=== PATIENT | male | born 1950 | race Caucasian/White ===

== ENCOUNTER 2023-04-02 07:30 | Outpatient (CLI) | payer OTHER, SELFPAY ==
--- NOTE | 2023-04-02 07:39 | USCV_ITS ---
Donna Lewis Age: 73 Gender: M : 1950 Exam Date: 04/02/2023 07:48 Ordering Phys: Xander Sears DO Technologist: [place] [facility] [place] AAA SCREENING HISTORY: Diameter (cm) AP x Transverse x Length Velocity (cm/s) Waveform Prox Aorta: 2.45 x 2.23 x 77.70 Mid Aorta: 1.98 x 2.15 x 73.50 Distal Aorta: 3.12 x 3.62 x 38.30 Right Iliac Prox: 1.50 x 1.35 x 60.30 Left Iliac Prox: 1.16 x 1.19 x 67.80 Stent Prox Landing x x Aneurysmal Sac Max x x Lt Lat Sac Dim Rt Lat Sac Dim Stent Dist Landing x x Right Iliac Stent x x Left Iliac Stent x x Right Renal Art Left Renal Art FINDINGS: CONCLUSIONS Distal AAA measuring 3.1 x 3.6cm. Moderate atheromatous disease within the abdominal aorta. Ectatic Right Iliac artery 1.5 cm Pito Hameed MD (Electronically Signed) Final Date: 02 Apr 2023 09:52 S
== END 2023-04-02 07:31 | disposition home or self-care (01) ==
LOC: RAD 07:33
PROVIDERS: PCP Emergency Medicine Emergency Medical Services; Visit Provider Emergency Medicine Emergency Medical Services
DX: I71.40 Abdominal aortic aneurysm, without rupture, unspecified (principal)
CPT/HCPCS: 76706

== ENCOUNTER → 2023-04-23 10:18 | Outpatient (BNVA) | payer OTHER, SELFPAY | PROVIDERS: PCP Emergency Medicine Emergency Medical Services; Visit Provider Nurse Practitioner Family | DX: Z85.828 Personal history of other malignant neoplasm of skin (principal); Z85.820 Personal history of malignant melanoma of skin; Z87.891 Personal history of nicotine dependence; D04.4 Carcinoma in situ of skin of scalp and neck; D04.5 Carcinoma in situ of skin of trunk; L57.0 Actinic keratosis; S50.812A Abrasion of left forearm, initial encounter; X58.XXXA Exposure to other specified factors, initial encounter; D69.2 Other nonthrombocytopenic purpura | CPT/HCPCS: 11102; 11103; 17004; 17272; 99214 ==

== ENCOUNTER → 2023-05-16 08:55 | Outpatient (BNVA) | payer OTHER, SELFPAY | PROVIDERS: PCP Emergency Medicine Emergency Medical Services; Visit Provider Dermatology | DX: C44.529 Squamous cell carcinoma of skin of other part of trunk (principal); D04.5 Carcinoma in situ of skin of trunk | CPT/HCPCS: 11603; 12032; 17260 ==

== ENCOUNTER → 2023-05-27 09:52 | Outpatient (BNVA) | payer OTHER, SELFPAY | PROVIDERS: PCP Emergency Medicine Emergency Medical Services; Visit Provider Dermatology | DX: L57.0 Actinic keratosis (principal); L82.0 Inflamed seborrheic keratosis; L82.1 Other seborrheic keratosis; L81.4 Other melanin hyperpigmentation; Z48.02 Encounter for removal of sutures; Z85.828 Personal history of other malignant neoplasm of skin; Z87.891 Personal history of nicotine dependence | CPT/HCPCS: 17000; 17003; 17110; 99213 ==

== ENCOUNTER 2023-08-06 16:48 | Emergency (ER) | payer OTHER, SELFPAY ==
[2023-08-06 16:51] VITALS: BP 121/77; PULSE 76; RESP 18; O2SAT 98; BMI 22.1
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
--- NOTE | 2023-08-06 16:55 | ECG_ITS ---
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 Measurements Intervals [place] Rate: 79 P: 71 WA: 172 QRS: 72 QRSD: 90 T: 81 QT: 431 QTc: 495 Interpretive Statements SINUS RHYTHM PROLONGED QT INTERVAL No previous ECG available for comparison Electronically Signed On 08-06-2023 17:56:39 CDT by Cyrus Alfonso M.D. [id number]
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
[2023-08-06] MEDS: iohexol 350 mg/mL 500 mL Btl (per mL) IV (17:19)
[2023-08-06] MEDS: HYDROcodone-acetaminophen 5-325 mg Tablet 1 TAB PO (17:30)
[2023-08-06] MEDS: tetanus-dipt-pertussis 0.5 mL SDV IM (17:39)
[2023-08-06 18:12] LABS: Basophils % 0.1 %; Eosinophils % 0.1 %; Hematocrit 36.7 % (37-53); Lymphocytes # 0.3 10^3/uL (0.8-4.8); Lymphocytes % 2.5 %; Mean Corpuscular HGB Conc 35.1 g/dL (30-55); Mean Corpuscular Hemoglobin 35.6 pg (27-33); Mean Corpuscular Volume 101.4 fl (82-101); Mean Platelet Volume 10.4 fL (7.4-10.4); Monocytes # 0.6 10^3/uL (0.2-0.9); Monocytes % 4.8 %; Neutrophils # 11.98 10^3/uL (1.8-7.7); Nucleated Red Blood Cells % 0 %; Platelet Count 187 10^3/cmm (157-399); Red Blood Count 3.62 10^6/uL (3.85-5.65); Red Cell Distribution Width 12.5 % (12.1-15.1); White Blood Count 13.01 10^3/uL (3.29-11.43)
[2023-08-06 18:27] LABS: Alanine Aminotransferase 16 U/L (0-41); Albumin Level 4.4 g/dL (3.5-5.2); Alkaline Phosphatase 51 U/L (40-130); Anion Gap 14.7 (5-19); Aspartate Amino Transferase 25 U/L (0-40); Blood Urea Nitrogen 19 mg/dL (8-23); Calcium 8.4 mg/dL (8.5-10.5); Carbon Dioxide 24 mmol/L (22-29); Chloride 103 mmol/L (98-107); Globulin 1.9 g/dL (1.3-4.6); Glucose 129 mg/dL (65-115); Osmolality Calculated 288 mOsm/kg (285-295); Potassium 4.7 mmol/L (3.5-5.1); Sodium 137 mmol/L (136-145); Total Bilirubin 0.7 mg/dL (0.15-1.2); Total Protein 6.3 g/dL (6.6-8.7)
[2023-08-06] MEDS: neomycin-poly-bacitracin oint 28 gm 1 APPLIC TOPICAL ×2 (19:36)
[2023-08-06] MEDS: acetaminophen 500 mg Tablet 1000 MG PO (19:36)
--- NOTE | 2023-08-06 19:53 | PC.NURSE ---
Applied antibiotic ointment to all the open skin tears and wounds the patient had on both upper extremities and the patients head and ear.
--- NOTE | 2023-08-07 09:00 | DCPLANNER ---
optical laboratory manager had message to schedule a follow up appointment for patient with ortho. optical laboratory manager sent patients information to the front office staff at ortho. Patients information will be printed and reviewed. Clinic will call patient with appointment information.
== END 2023-08-06 19:52 | disposition home or self-care (01) ==
PROVIDERS: Emergency Provider Family Medicine; PCP Emergency Medicine Emergency Medical Services
DX: S42.032A Displaced fracture of lateral end of left clavicle, initial encounter for closed fracture (principal); S22.42XA Multiple fractures of ribs, left side, initial encounter for closed fracture; S01.81XA Laceration without foreign body of other part of head, initial encounter; Z79.82 Long term (current) use of aspirin; I10 Essential (primary) hypertension; E78.5 Hyperlipidemia, unspecified; Z87.891 Personal history of nicotine dependence; Z94.1 Heart transplant status; V59.9XXA Occupant (driver) (passenger) of pick-up truck or van injured in unspecified traffic accident, initial encounter; Z23 Encounter for immunization
CPT/HCPCS: 12013; 36415; 70450; 71260; 72125; 73030; 74177; 80053; 85025; 90471; 90715; 93005; 99285; Q9967

== ENCOUNTER → 2023-08-12 15:07 | Outpatient (BNVA) | payer OTHER, SELFPAY | PROVIDERS: PCP Emergency Medicine Emergency Medical Services; Referring Provider Emergency Medicine; Visit Provider Specialist | DX: V89.2XXA Person injured in unspecified motor-vehicle accident, traffic, initial encounter (principal); S42.032A Displaced fracture of lateral end of left clavicle, initial encounter for closed fracture | CPT/HCPCS: 73030 ==

== ENCOUNTER 2023-08-12 16:21 | Outpatient (CLI) | payer OTHER, SELFPAY | END 2023-08-12 16:22 | disposition home or self-care (01) | LOC: SPT 08-13 11:21 | PROVIDERS: PCP Emergency Medicine Emergency Medical Services; Visit Provider Specialist | DX: Z46.89 Encounter for fitting and adjustment of other specified devices (principal); S42.025D Nondisplaced fracture of shaft of left clavicle, subsequent encounter for fracture with routine healing; X58.XXXD Exposure to other specified factors, subsequent encounter | CPT/HCPCS: 23500; 97760; 99204; L3670 ==

== ENCOUNTER → 2023-08-22 11:10 | Outpatient (BNVA) | payer OTHER, SELFPAY | PROVIDERS: PCP Emergency Medicine Emergency Medical Services; Visit Provider Nurse Practitioner Family | DX: D48.5 Neoplasm of uncertain behavior of skin (principal); L57.0 Actinic keratosis; S50.812A Abrasion of left forearm, initial encounter; D69.2 Other nonthrombocytopenic purpura; Z85.828 Personal history of other malignant neoplasm of skin; Z85.820 Personal history of malignant melanoma of skin | CPT/HCPCS: 11102; 17000; 99213 ==

== ENCOUNTER → 2023-09-02 11:08 | Outpatient (BNVA) | payer OTHER, SELFPAY | PROVIDERS: PCP Emergency Medicine Emergency Medical Services; Visit Provider Specialist | DX: S42.032D Displaced fracture of lateral end of left clavicle, subsequent encounter for fracture with routine healing; V89.2XXD Person injured in unspecified motor-vehicle accident, traffic, subsequent encounter | CPT/HCPCS: 73030; 99024 ==

== ENCOUNTER → 2023-09-19 08:06 | Outpatient (BNVA) | payer OTHER, SELFPAY | PROVIDERS: PCP Emergency Medicine Emergency Medical Services; Visit Provider Dermatology | DX: D48.5 Neoplasm of uncertain behavior of skin (principal); C44.42 Squamous cell carcinoma of skin of scalp and neck; L82.1 Other seborrheic keratosis; Z85.828 Personal history of other malignant neoplasm of skin; L81.4 Other melanin hyperpigmentation; L57.0 Actinic keratosis | CPT/HCPCS: 11102; 17000; 17272; 99213 ==

== ENCOUNTER → 2023-10-07 08:57 | Outpatient (BNVA) | payer OTHER, SELFPAY | PROVIDERS: PCP Emergency Medicine Emergency Medical Services; Visit Provider Specialist | DX: S42.032D Displaced fracture of lateral end of left clavicle, subsequent encounter for fracture with routine healing; V89.2XXD Person injured in unspecified motor-vehicle accident, traffic, subsequent encounter | CPT/HCPCS: 73030; 99024 ==

== ENCOUNTER → 2023-11-22 10:29 | Outpatient (BNVA) | payer OTHER, SELFPAY | PROVIDERS: PCP Emergency Medicine Emergency Medical Services; Visit Provider Nurse Practitioner Family | DX: D48.5 Neoplasm of uncertain behavior of skin (principal); Z85.828 Personal history of other malignant neoplasm of skin; Z85.820 Personal history of malignant melanoma of skin; L57.8 Other skin changes due to chronic exposure to nonionizing radiation; D22.4 Melanocytic nevi of scalp and neck | CPT/HCPCS: 11102; 17000; 17110; 99213 ==

== ENCOUNTER 2023-12-04 08:05 | Outpatient (CLI) | payer OTHER, SELFPAY ==
--- NOTE | 2023-12-04 08:16 | USCV_ITS ---
Donna Lewis Age: 73 Gender: M : 1950 Exam Date: 12/04/2023 08:26 Ordering Phys: Xander Sears DO Technologist: CT [place] [facility] [place]: aaa HISTORY: Diameter (cm) AP x Transverse x Length Velocity (cm/s) Waveform Prox Aorta: 2.35 x 2.03 x 57.40 Mid Aorta: 2.90 x 2.40 x 48.30 Distal Aorta: 4.18 x 4.61 x 57.70 Right Iliac Prox: 1.43 x 1.71 x 72.70 Left Iliac Prox: 2.13 x 2.02 x 77.70 Stent Prox Landing x x Aneurysmal Sac Max x x Lt Lat Sac Dim Rt Lat Sac Dim Stent Dist Landing x x Right Iliac Stent x x Left Iliac Stent x x Right Renal Art Left Renal Art FINDINGS: CONCLUSIONS Distal AAA measuring 4.1 x 4.6cm AP x transverse progressed since 04/02/23. Recommend CTA in further evaluation. Moderate atheromatous plaque Aneurysmal LEFT iliac artery Normal RIGHT iliac artery Pito Hameed MD (Electronically Signed) Final Date: 04 December 2023 09:19 S
== END 2023-12-04 08:06 | disposition home or self-care (01) ==
LOC: RAD 08:06
PROVIDERS: PCP Emergency Medicine Emergency Medical Services; Visit Provider Family Medicine
DX: Z13.6 Encounter for screening for cardiovascular disorders (principal); I71.40 Abdominal aortic aneurysm, without rupture, unspecified
CPT/HCPCS: 93978

== ENCOUNTER 2024-02-05 10:06 | Outpatient (CLI) | payer OTHER, SELFPAY ==
--- NOTE | 2024-02-05 10:11 | CT_ITS ---
WS: [id number] CT chest w con* [id number] HISTORY: FOLLOW UP PULMONARY NODULE TECHNIQUE: Axial imaging performed through the thorax. Coronal and sagittal reformats are submitted. All CT scans at [facility] use at least one of these dose optimization techniques: automated exposure control; mA and/or kV adjustment per patient size (includes targeted exams where dose is mat ched to clinical indication); or iterative reconstruction. CONTRAST: None DLP: 321.65 mGy.cm COMPARISON: 08/06/2023 Lungs and central airway: Moderate pulmonary hyperexpansion from emphysema. There are a few scattered benign granulomata. 5 mm nodule in the RIGHT middle lobe is stable. There are no suspicious or new o r enlarging nodules. Pleura: Normal. No pleural effusion. Heart and pericardium: Normal size heart with no pericardial effusion. Mediastinum and sanjeev: Densely calcified hilar and mediastinal lymph nodes from prior granulomatous di sease. No adenopathy. Vessels: Moderate atherosclerotic plaque thoracic aorta. No aneurysm. Normal sized pulmonary artery. Chest wall and lower neck: Tiny bilateral thyroid nodules. Prior sternotomy. Upper abdomen: Hepatic steatosis along the falciform ligament. Granulomata in the spleen. No adrenal mass. Osseous structures: No destructive process. IMPRESSION: 1. No change in the irregular 5 mm nodule in the RIGHT middle lobe 2. Nonspecific in appearance and may be scar. Consider 6 to 12-month additional chest CT follow-up. 3. Mild emphysema. 4. Prior sternotomy.
[2024-02-05 11:08] LABS: Blood Urea Nitrogen 19 mg/dL (8-23)
[2024-02-05] MEDS: iohexol 350 mg/mL 500 mL Btl (per mL) IV (11:16)
== END 2024-02-05 10:07 | disposition home or self-care (01) ==
LOC: RAD 10:06
PROVIDERS: PCP Emergency Medicine Emergency Medical Services; Visit Provider Emergency Medicine Emergency Medical Services
DX: R91.1 Solitary pulmonary nodule (principal); J43.9 Emphysema, unspecified; Z98.890 Other specified postprocedural states
CPT/HCPCS: 71260; 82565; 84520; Q9967

== ENCOUNTER → 2024-03-17 09:57 | Outpatient (BNVA) | payer OTHER, SELFPAY | PROVIDERS: PCP Emergency Medicine Emergency Medical Services; Visit Provider Nurse Practitioner Family | DX: D48.5 Neoplasm of uncertain behavior of skin (principal); L57.0 Actinic keratosis; L57.8 Other skin changes due to chronic exposure to nonionizing radiation; D22.4 Melanocytic nevi of scalp and neck; L81.4 Other melanin hyperpigmentation; L98.8 Other specified disorders of the skin and subcutaneous tissue; Z85.828 Personal history of other malignant neoplasm of skin; Z85.820 Personal history of malignant melanoma of skin; L82.0 Inflamed seborrheic keratosis | CPT/HCPCS: 11102; 17000; 17110; 99213 ==

== ENCOUNTER → 2024-05-13 08:30 | Outpatient (BNVA) | payer OTHER, SELFPAY | PROVIDERS: PCP Emergency Medicine Emergency Medical Services; Visit Provider Dermatology | DX: C44.622 Squamous cell carcinoma of skin of right upper limb, including shoulder (principal); D04.62 Carcinoma in situ of skin of left upper limb, including shoulder | CPT/HCPCS: 11602; 12032; 17262 ==

== ENCOUNTER → 2024-07-22 10:45 | Outpatient (BNVA) | payer OTHER, SELFPAY | PROVIDERS: PCP Emergency Medicine Emergency Medical Services; Visit Provider Nurse Practitioner Family | DX: L57.8 Other skin changes due to chronic exposure to nonionizing radiation (principal); D22.4 Melanocytic nevi of scalp and neck; L81.4 Other melanin hyperpigmentation; L98.8 Other specified disorders of the skin and subcutaneous tissue; L57.0 Actinic keratosis; D48.5 Neoplasm of uncertain behavior of skin; Z85.828 Personal history of other malignant neoplasm of skin; Z85.820 Personal history of malignant melanoma of skin | CPT/HCPCS: 11102; 17000; 99213 ==

== ENCOUNTER 2024-08-03 08:56 | Outpatient (CLI) | payer OTHER, SELFPAY ==
--- NOTE | 2024-08-03 09:04 | CT_ITS ---
WS: [id number] CT ABDOMEN WITH AND WITHOUT CONTRAST HISTORY: FOLLOW UP RENAL MASS Multiphase imaging through the abdomen. Oral contrast has not been provided. Coronal and sagittal ref ormats are submitted. All CT scans at [facility] use at least one of these dose optimization techniques: automated exposure control; mA and/or kV adjustment per patient size (includes targeted e xams where dose is matched to clinical indication); or iterative reconstruction. IV CONTRAST: Omnipaque 350; 100 mL IV. Oral contrast: No DLP: 1220.22 mGy.cm COMPARISON: 08/06/2023 Lower thorax: Lung bases are clear. Heart is normal size. No hiatal hernia. Liver/biliary system: Normal size liver. There are a few scattered too small to characterize low-atte nuation foci. Normal portal vein. Gallbladder: Normal. No gallstones or wall thickening. No pericholecystic fluid. Pancreas: Diffuse pancreatic atrophy. Very slight prominence of the pancreatic duct is similar to camille or studies. No mass identified. Spleen: Normal size with granuloma. Adrenal glands: Mild bilateral adrenal gland thickening. Hounsfield units are low within the thickene d LEFT adrenal gland consistent with an adenoma. This study was not ordered for adrenal mass protocol . Right kidney: Mild perinephric stranding. No obstruction. Nonobstructing calcification. No solid mass . Left kidney: Normal size kidney with diffuse too small to characterize cortical hypodensities. Very s ubtle area of decreased enhancement in the medial mid LEFT kidney measures 11 x 14 mm and is unchange d in size since 08/06/2023. There is enhancement. Aorta: No aneurysmal dilatation of the abdominal aorta. Largest diameter is 4.9 cm. There is a combin ation of wall calcification with asymmetric intraluminal mural thickening. Aneurysm has increased in diameter from 4.1 cm. Calcification extends into the proximal iliac arteries. Lymphadenopathy: None. Free fluid: None. GI tract: As visualized no obstruction. Abdominal wall: Unremarkable abdominal wall. No hernia. Numerous collateral varices are noted in the upper abdomen. Visualized osseous structures: Unremarkable. CT/CT abdomen wo/w con [id number] IMPRESSION: 1. Enhancing LEFT renal mass measures 11 x 14 mm and stable since 08/06/2023. S mall renal cell neoplasm is suspected. Recommend continued renal mass CT protoc ol follow-up to document stability. Recommend follow-up in 6 to 12 months. 2. Mild thickening of each adrenal gland. Probably adenomas. No change since . 3. Abdominal aortic aneurysm has increased in size from 4.1 to 4.9 cm. Recomme nd evaluation by cardiovascular surgery. 4. Atrophic pancreas.
--- NOTE | 2024-08-03 09:04 | CT_ITS ---
WS: [id number] CTA THORACIC AORTA WITH AND WITHOUT CONTRAST HISTORY: Follow-up lung nodule. TECHNIQUE: CTA imaging of the thorax is performed with and without contrast. After noncontrast imagin g is performed, CT angiogram is performed during injection of Omnipaque 350; 100 mL IV.. Sagittal and coronal reconstructions, sagittal and coronal MIP imaging is submitted. All CT scans at [facility] use at least one of these dose optimization techniques: automated exposure control; mA and/or kV adjustment per patient size (includes targeted exams where dose is matched to clinical indication) ; or iterative reconstruction. DLP: 1220.22 mGy.cm COMPARISON: 02/05/2024, 08/06/2023 Arterial phase imaging is performed of the aorta. Mildly enlarged thoracic aorta with moderate athero sclerotic disease. There is very slight dilatation of the ascending aorta with a maximum diameter of 4.2 cm. Atherosclerotic plaque through the arch. Descending aorta is normal caliber. Normal sinotubul ar junction and sinus of Valsalva. Normal pulmonary artery. No filling defects. Mild LEFT heart enlar gement. Calcified hilar lymph nodes. No adenopathy. Small hiatal hernia. Moderate emphysema. Reidentified is the 5 mm nodule in the RIGHT middle lobe which is unchanged. Ther e are a few additional micronodules which are unchanged also. No enlarging mass or new mass. Subsolid 3 mm nodule LEFT lower lobe, image 46 of 14 is unchanged. Supraumbilical atherosclerotic disease abd ominal aorta. Splenic granulomata. No destructive bone lesions. Prior healed rib fractures on the LEFT. There are a few wedge-shaped def ormities in the midthoracic vertebral bodies. Prior CABG. CT/CT angio chest [id number] IMPRESSION: 1. Stable pulmonary nodules. Demonstrate long-term stability recommend 12-sree h noncontrast chest CT follow-up. 2. Mild dilatation ascending thoracic aorta to 4.2 cm. No interval change sinc e 08/06/2023 3. Chronic emphysema. 4. Mild LEFT heart enlargement.
[2024-08-03] MEDS: iohexol 350 mg/mL 500 mL Btl (per mL) IV (10:11)
[2024-08-03 10:16] LABS: Blood Urea Nitrogen 22 mg/dL (8-23)
== END 2024-08-03 08:57 | disposition home or self-care (01) ==
LOC: RAD 08:57
PROVIDERS: PCP Family Medicine; Visit Provider Emergency Medicine Emergency Medical Services
DX: J43.9 Emphysema, unspecified (principal); R91.8 Other nonspecific abnormal finding of lung field; I70.0 Atherosclerosis of aorta; D73.89 Other diseases of spleen
CPT/HCPCS: 71275; 74170; 82565; 84520

== ENCOUNTER → 2024-08-10 10:48 | Outpatient (BNVA) | payer OTHER, SELFPAY | PROVIDERS: PCP Family Medicine; Visit Provider Dermatology | DX: C44.612 Basal cell carcinoma of skin of right upper limb, including shoulder (principal); L57.0 Actinic keratosis; L82.1 Other seborrheic keratosis; Z85.828 Personal history of other malignant neoplasm of skin; L57.8 Other skin changes due to chronic exposure to nonionizing radiation | CPT/HCPCS: 17000; 17262; 99213 ==

== ENCOUNTER → 2024-12-17 14:37 | Outpatient (BNVA) | payer OTHER, SELFPAY | PROVIDERS: PCP Family Medicine; Visit Provider Nurse Practitioner Family | DX: L57.8 Other skin changes due to chronic exposure to nonionizing radiation (principal); Z85.828 Personal history of other malignant neoplasm of skin; Z08 Encounter for follow-up examination after completed treatment for malignant neoplasm; Z85.820 Personal history of malignant melanoma of skin; L57.0 Actinic keratosis | CPT/HCPCS: 11102; 17004; 20605; 99213 ==

== ENCOUNTER → 2025-02-08 08:16 | Outpatient (BNVA) | payer OTHER, SELFPAY | PROVIDERS: PCP Family Medicine; Visit Provider Dermatology | DX: C44.42 Squamous cell carcinoma of skin of scalp and neck (principal); C44.41 Basal cell carcinoma of skin of scalp and neck; D48.5 Neoplasm of uncertain behavior of skin; L57.0 Actinic keratosis | CPT/HCPCS: 11102; 13121; 17000; 17272; 17311 ==

== ENCOUNTER → 2025-03-04 08:55 | Outpatient (BNVA) | payer OTHER, SELFPAY | PROVIDERS: PCP Family Medicine; Visit Provider Dermatology | DX: C44.41 Basal cell carcinoma of skin of scalp and neck (principal); D04.5 Carcinoma in situ of skin of trunk; M70.22 Olecranon bursitis, left elbow | CPT/HCPCS: 10160; 13132; 17262; 17311 ==

== ENCOUNTER → 2025-03-24 09:21 | Outpatient (BNVA) | payer OTHER, SELFPAY | PROVIDERS: PCP Family Medicine; Visit Provider Specialist | DX: M70.22 Olecranon bursitis, left elbow (principal); M06.4 Inflammatory polyarthropathy | CPT/HCPCS: 20605; 36415; 73080; 80053; 84550; 85025; 85651; 86140; 86200; 86225; 86235; 86431; 87070; 87075; 87205; 99214 ==

== ENCOUNTER → 2025-06-04 09:42 | Outpatient (BNVA) | payer OTHER, SELFPAY | PROVIDERS: PCP Family Medicine; Visit Provider Nurse Practitioner Family | DX: Z85.828 Personal history of other malignant neoplasm of skin (principal); Z08 Encounter for follow-up examination after completed treatment for malignant neoplasm; Z85.820 Personal history of malignant melanoma of skin; L57.0 Actinic keratosis; D48.5 Neoplasm of uncertain behavior of skin | CPT/HCPCS: 11102; 17004; 99213 ==

== ENCOUNTER 2025-06-22 13:14 | Emergency (ER) | payer OTHER, MEDICARE, SELFPAY ==
--- OUTSIDE RECORDS SUMMARY | 2025-02-02 09:30 | XMS_ITS ---
Author Organization [facility] Address [address] [place] [address] Care Team Providers Care Accounts Payable Clerk Name Role Phone Xander Desouza DO Primary Care Provider Un available Kodi Stover Unavailable [phone] Whitney Bills Unavailable REASON FOR VISIT 6m f/u w ua and pvr Encounters Encounter Location Date Provider Diagnosis [facility] [address] [place] [address] [facility] [address] [place] [address] 02/02/2025 Whitney Bills Plan Of Treatment Next Appt Details Provider Name:Whitney Mascorro, 08/04/2025 02:00:00 PM, [address] , [address], [place], [address], Provider Name:Ofelia martel, 08/23/2025 10:30:00 AM, [address] [place] [address] [address] [place], [address], Progress Notes * Donna ASKEW MDOB:[birth year] (75 yo M)Acc No.[id number]:02/02/2025 Progress Notes Patient: Destiny browningDonna Provider: ANNEL Fox :1950 A ge:74 Y S ex:Male Date:02/02/2025 Address[address] [id number] Pcp:Xander Greenbush-[place], DO Subjective: * Chief Complaints: * 6 m f/u w ua and pvr * Electronic signature of ANNEL Toribio on 06/22/2025 at 01:24 PM CDT Sign off status: Pending * Provider: ANNEL Fox Date: 0 02/02/2025 Generated for Michael roberts/Clover/Heather on: 0 06/22/2025 01:24 PM CDT
[2025-06-22] VITALS (11 sets, daily range): BP systolic 90–145; BP diastolic 61–99; PULSE 98–125; RESP 16–26; TEMP 36.7; O2SAT 90–97
--- OUTSIDE RECORDS SUMMARY | 2025-06-22 13:22 | XMS_ITS | Continuity of Care Document ---
Author Name [facility] Organization [facility] Care Team Providers Care Convention Manager Name Role Phone [facility] Unavailable Unavailable Problems Combined list of problems from Department of Defense and Veterans Affairs facilities. It does not include entries that were removed or entered in error. 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 Incidental CT finding 07/2023. [place] [facility] Allergic rhinitis Active Condition [facility] Aneurysm of iliac artery Active Condition Dec 04, 2023 Entered By: SULMA DOE Comment: On US 11/2023. Left side. Size not mentioned on US report. 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 [place] [facility] Exposure to potentially hazardous substance Active Condition 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 [place] [facility] Thoracic aortic aneurysm without rupture Active Condition [place] [facility] Tinnitus Active Condition [place] [facility] Urge incontinence of urine Active Condition [place] [facility] Urinary incontinence Active Condition [place] [facility] Issue of Repeat Prescriptions (ICD-9-CM V68.1) Inactive Condition 05/17/2021 [facility] Laboratory Procedures (ICD-9-CM V72.6) Inactive Condition 07/16/2019 [place] [facility] Routine General Medical Examination at a Health Care Facility * (ICD-9-CM V70.0) Inactive Condition 03/16/2022 [facility] SCREENING FOR ALCOHOLISM Inactive Condition 05/17/2021 [place] [facility] Diagnosis: ICD-10-CM F33.9 Major depressive disorder, recurrent, unspecified Active Diagnosis [facility] Diagnosis: ICD-10-CM R93.89 Abnormal findings on dx imaging of oth body structures Active Diagnosis [facility] Diagnosis: ICD-10-CM T18.9XXA Foreign body of alimentary tract, part unsp, init encntr Active Diagnosis [facility] Diagnosis: ICD-10-CM Z94.1 Heart transplant status Active Diagnosis [facility] Medications Combined list of outpatient medications from Department of Defense and Veterans Affairs facilities.Medications provided include 1) outpatient medications from the last 15 months, and 2) patient-reported medications. Medication Details Route Status Patient Instructions Prescription Expires Prescription Number Last Dispense Date Ordering Provider Order Date Order Qty Source ALENDRONATE 70MG TAB TAKE ONE TABLET BY MOUTH EVERY WEEK FOR OSTEOPOR OSIS. TAKE WITH 6-8 OZ OF PLAIN WATER 30 MIN BEFORE FIRST FOOD OR OTHER MEDICATI ON. REMAIN UPRIGHT. ORAL ACTIVE 12/23/2025 [id number] 5 TINO GILES 2024 12 [facility] ALENDRONATE 70MG TAB TAKE ONE TABLET BY MOUTH EVERY WEEK FOR OSTEOPOR OSIS. TAKE WITH 6-8 OZ OF PLAIN WATER 30 MIN BEFORE FIRST FOOD OR OTHER MEDICATI ON. REMAIN UPRIGHT. ORAL DISCONT INUED 10/07/2024 [id number] 4 SULMA DOE 2022 12 [facility] ASPIRIN 81MG TAB,CHEWABL E CHEW AND SWALLOW ONE TABLET BY MOUTH ONCE A DAY ORAL ACTIVE SAHUEMMIE H 2015 [facility] ATORVASTATI N CA 80MG TAB TAKE ONE-HALF TABLET BY MOUTH EVERY EVENING TO LOWER CHOLESTE ROL ORAL ACTIVE 12/23/2025 [id number] 5 TINO GILES 2024 45 [facility] ATORVASTATI N CA 80MG TAB TAKE ONE-HALF TABLET BY MOUTH EVERY EVENING TO LOWER CHOLESTE ROL ORAL DISCONT INUED 10/07/2024 [id number] 4 SULMA DOE 2022 45 [facility] DILTIAZEM (EQV-TIAZAC AB4) 120MG 24HR CAP TAKE ONE CAPSULE BY MOUTH TWICE A DAY FOR HEART OR TO LOWER BLOOD PRESSURE ORAL ACTIVE 12/23/2025 [id number] 5 TINO GILES 2024 180 [place] [facility] DILTIAZEM (EQV-TIAZAC AB4) 120MG 24HR CAP TAKE ONE CAPSULE BY MOUTH TWICE A DAY FOR HEART OR TO LOWER BLOOD PRESSURE ORAL DISCONT INUED 10/07/2024 [id number] 4 SULMA DOE [address] [place] [address] [facility] FLUTICASONE PROPIONATE 50MCG/SPRAY SOLN,NASAL, 16GM INSTILL 2 SPRAYS IN EACH NOSTRIL ONCE A DAY NEEDED FOR ALLERGIE S (MUST BE USED DIRECTED FOR MINIMUM OF 21 DAYS TO PROVIDE ADEQUATE BENEFITS ) NASAL ACTIVE 12/23/2025 [id number] 5 TINO GILES 2024 3 [place] [facility] FLUTICASONE PROPIONATE 50MCG/SPRAY SOLN,NASAL, 16GM INSTILL 2 SPRAYS IN EACH NOSTRIL ONCE A DAY NEEDED FOR ALLERGIE S (MUST BE USED DIRECTED FOR MINIMUM OF 21 DAYS TO PROVIDE ADEQUATE BENEFITS ) NASAL DISCONT INUED 10/07/2024 [id number] 4 SULMA DOE 2022 3 [place] [facility] LEVOTHYROXI NE NA 25MCG TAB TAKE ONE TABLET BY MOUTH EVERY MORNING BEFORE A MEAL FOR THYROID ORAL ACTIVE 12/23/2025 [id number] 5 TINO GILES [address] [place] [address] [facility] LEVOTHYROXI NE NA 25MCG TAB (SYNTHROID) TAKE ONE TABLET BY MOUTH EVERY MORNING BEFORE A MEAL FOR THYROID ORAL DISCONT INUED 10/07/2024 [id number] 4 SULMA DOE [address] [place] [address] [facility] LISINOPRIL 10MG TAB TAKE ONE-HALF TABLET BY MOUTH TWICE A DAY FOR HEART OR BLOOD PRESSURE ORAL ACTIVE 12/23/2025 [id number] 5 TINO GILES [address] [place] [address] [facility] LISINOPRIL 10MG TAB TAKE ONE-HALF TABLET BY MOUTH TWICE A DAY FOR HEART OR BLOOD PRESSURE ORAL DISCONT INUED 10/07/2024 [id number] 4 SULMA DOE [address] [place] [address] [place] [facility] Oxybutynin Chloride 10mg, 24 Hour Extended Release Tablet TAKE ONE TABLET BY MOUTH ONCE A DAYSWALL OW WHOLE, DO NOT CRUSH OR CHEW. 04/03/2025 [id number] SOLOMON GARCIA E 2023 30 [facility] OXYBUTYNIN CL 10MG TAB,SA TAKE ONE TABLET BY MOUTH ONCE A DAY FOR 30 DAYS SWALLOW WHOLE, DO NOT CRUSH OR CHEW. ORAL ACTIVE 12/23/2025 [id number] 5 TINO GILES 2024 30 [facility] OXYBUTYNIN CL 10MG TAB,SA TAKE ONE TABLET BY MOUTH ONCE A DAY FOR 30 DAYS SWALLOW WHOLE, DO NOT CRUSH OR CHEW. ORAL DISCONT INUED 08/05/2025 [id number] JODIE HERNANDEZ N 2023 30 [place] [facility] OXYBUTYNIN CL 10MG TAB,SA TAKE ONE TABLET BY MOUTH ONCE A DAY SWALLOW WHOLE, DO NOT CRUSH OR CHEW. ORAL DISCONT INUED 04/03/2025 [id number] SOLOMON GARCIA E 2023 30 [place] [facility] POTASSIUM BICARBONATE 25MEQ TAB,EFFERVS C DISSOLVE TWO TABLET BY MOUTH ONCE A DAY ORAL ACTIVE ASHLYN,[place] VANDANA 2010 [facility] RISEDRONATE NA 150MG TAB TAKE ONE TABLET BY MOUTH EVERY MONTH ORAL ACTIVE ASHLYN,[place]OR[place] VANDANA 2010 [facility] SERTRALINE HCL 100MG TAB TAKE TWO TABLETS BY MOUTH EVERY MORNING FOR DEPRESSI ON ORAL ACTIVE 12/23/2025 [id number] 5 TNIO GILES 2024 180 [facility] SERTRALINE HCL 100MG TAB TAKE TWO TABLETS BY MOUTH EVERY MORNING FOR DEPRESSI ON ORAL DISCONT INUED 10/07/2024 [id number] 4 SULMA DOE 2022 180 [facility] SILDENAFIL CITRATE 100MG TAB TAKE ONE TABLET BY MOUTH EVERY WEEK FOR ERECTILE DYSFUNCT ION (TAKE 60 MINUTES PRIOR TO SEXUAL ACTIVITY ) - LIMIT 4 DOSES PER 30 DAYS ORAL ACTIVE 12/23/2025 [id number] 5 TISHA TINO 2024 12 [facility] SILDENAFIL CITRATE 100MG TAB TAKE ONE TABLET BY MOUTH EVERY WEEK FOR ERECTILE DYSFUNCT ION (TAKE 60 MINUTES PRIOR TO SEXUAL ACTIVITY ) - LIMIT 4 DOSES PER 30 DAYS ORAL DISCONT INUED 10/07/2024 [id number] 4 SULMA DOE 2022 12 [facility] SULFAMETHOX AZOLE 800MG/TRIME THOPRIM 160MG TAB TAKE 1 TABLET BY MOUTH SATURDAY, Y AND SATURDAY FOR INFECTIO N. TAKE WITH WATER/AV OID SUNLIGHT . ORAL ACTIVE 12/23/2025 [id number] 5 TINO GILES 2024 40 [facility] SULFAMETHOX AZOLE 800MG/TRIME THOPRIM 160MG TAB TAKE 1 TABLET BY MOUTH SATURDAY, Y AND SATURDAY FOR INFECTIO N. TAKE WITH WATER/AV OID SUNLIGHT . ORAL DISCONT INUED 10/07/2024 [id number] 4 SULMA DOE 2022 40 [facility] TACROLIMUS 1MG CAP TAKE TWO CAPSULES BY MOUTH TWICE A DAY TO PREVENT TRANSPLA NT REJECTIO N ORAL ACTIVE 12/23/2025 [id number] 5 TINO GILES [address] [place] [address] [facility] TACROLIMUS 1MG CAP TAKE TWO CAPSULES BY MOUTH TWICE A DAY TO PREVENT TRANSPLA NT REJECTIO N ORAL DISCONT INUED 10/07/2024 [id number] 4 SULMA DOE [address] [place] [address] [facility] TORSEMIDE TAB TAKE 60 BY MOUTH TWICE A DAY ORAL ACTIVE ASHLYN,GLOR[place] VANDANA 2010 [facility] Immunizations Combined list of available immunizations from the Department of Defense and Veterans Affairs facilities. Immunization Series Date Given Administered By Site Reaction Lot Number CVX Code Drug Metallurgical Specialist Status Comments Source INFLUENZA, HIGH-DOSE, TRIVALENT, PF 3 2023 135 complet ed HISTORICA L INFORMATI ON - FROM OTHER REGISTRY, [facility] INFLUENZA, HIGH-DOSE, QUADRIVALENT 2022 ANTONIA NANCE RIGHT DELTO ID [id number] 197 complet ed [facility] TDAP 1 2022 115 complet ed HISTORICA L INFORMATI ON - FROM OTHER [facility], [facility] N INFLUENZA, INJECTABLE, QUADRIVALENT, PRESERVATIVE FREE 2021 MOSHE BARRAGAN LEFT DELTO ID [id number] 150 complet ed [facility] INFLUENZA, HIGH-DOSE, QUADRIVALENT 1 2020 197 complet ed HISTORICA L INFORMATI ON - FROM OTHER [facility], [facility] influenza, high-dose, quadrivalent 2020 NURYS, () Not Given influenza , high-dose , quadrival ent DoD COVID-19 (MODERNA), MRNA, LNP-S, PF, 100 MCG/0.5ML DOSE OR 50 MCG/0.25ML DOSE 3 2020 207 complet ed [facility] COVID-19 (PFIZER), MRNA, LNP-S, PF, 30 MCG/0.3 ML DOSE 2 2020 208 complet ed [facility] COVID-19 (PFIZER), MRNA, LNP-S, PF, 30 MCG/0.3 ML DOSE 1 2020 208 complet ed [facility] INFLUENZA, INJECTABLE, QUADRIVALENT, PRESERVATIVE FREE 2019 150 complet ed [facility] INFLUENZA, INJECTABLE, QUADRIVALENT, PRESERVATIVE FREE 2018 150 complet ed [facility] PNEUMOCOCCAL POLYSACCHARID E PPV23 2018 33 complet ed [facility] INFLUENZA, SEASONAL, INJECTABLE, PRESERVATIVE FREE 2017 140 complet ed Left Deltoid [facility] TDAP 2017 115 complet ed [facility] INFLUENZA, SEASONAL, INJECTABLE, PRESERVATIVE FREE 2016 140 complet ed Right Deltoid [place] [facility] INFLUENZA, UNSPECIFIED FORMULATION 2015 88 complet ed cardiolog ist office [facility] INFLUENZA, UNSPECIFIED FORMULATION 2014 88 complet ed [facility] PNEUMOCOCCAL CONJUGATE PCV 13 2014 133 complet ed [place] [facility] INFLUENZA, UNSPECIFIED FORMULATION 2012 88 complet ed [place] [facility] INFLUENZA, UNSPECIFIED FORMULATION 2010 88 complet ed [place] [facility] INFLUENZA, UNSPECIFIED FORMULATION 2009 88 complet ed [place] [facility] NOVEL INFLUENZA-H1N 1-09, ALL FORMULATIONS 2009 128 complet ed [employer] [place] [facility] INFLUENZA, UNSPECIFIED FORMULATION 2008 88 complet ed [place] [facility] PNEUMOCOCCAL, UNSPECIFIED FORMULATION 2008 109 complet ed Left Deltoid, Right Deltoid, Lot #:[id number] [place] [facility] INFLUENZA (HISTORICAL) 2007 88 complet ed [place] [facility] INFLUENZA, UNSPECIFIED FORMULATION 2006 88 complet ed [place] [facility] INFLUENZA, UNSPECIFIED FORMULATION 2005 88 complet ed [place] [facility] INFLUENZA, UNSPECIFIED FORMULATION 2004 88 complet ed [place] [facility] INFLUENZA, UNSPECIFIED FORMULATION 2003 88 complet ed [place] [facility] INFLUENZA, UNSPECIFIED FORMULATION 2002 88 complet ed [place] [facility] TD(ADULT) UNSPECIFIED FORMULATION 2002 139 complet ed [facility] INFLUENZA, UNSPECIFIED FORMULATION 2001 88 complet ed [place] [facility] INFLUENZA, UNSPECIFIED FORMULATION 2000 88 complet ed [place] [facility] INFLUENZA, UNSPECIFIED FORMULATION 1998 BEKA CORNELIUS 88 comple t ed [place] [facility] PNEUMOCOCCAL, UNSPECIFIED FORMULATION 1998 BEKA CORNELIUS 109 comple t ed [place] [facility] INFLUENZA (HISTORICAL) 1997 DENG HYATT 88 complet ed [place] [facility] INFLUENZA (HISTORICAL) 1997 TUCKER JENKINS 88 complet ed [facility] [place] [facility] INFLUENZA (HISTORICAL) 1995 TUCKER JENKINS 88 complet ed [facility] Results Combined list of recent chemistry, hematology and other laboratory results from Department of Defense and Veterans Affairs, ranging from 15 months to all on record, depending upon the facility. Order Name Results Value Reference Range Date Interpretation Specimen Comments Source BASIC METABOLIC PANEL CREATININE [MASS/VOLUME] IN SERUM OR PLASMA 0.99 mg/dL 0.7 - 1.3 03/16 Specimen Type: PLASMA No comment entered. Ordering Provider: TINO GILES Report Released Date/Time : Mar 11, 2025 11:57 AM Reporting Lab: [place] [facility] [address] [place] [address] Performin g Lab: [place] [facility] [address] [place] [address] [facility] BASIC METABOLIC PANEL UREA NITROGEN [MASS/VOLUME] IN SERUM OR PLASMA 19 mg/dL 9 - 25 03/16 Specimen Type: PLASMA No comment entered. Ordering Provider: TINO GILES Report Released Date/Time : Mar 11, 2025 11:57 AM Reporting Lab: [place] [facility] [address] [place] [address] Performin g Lab: [place] [facility] [address] [place] [address] [facility] BASIC METABOLIC PANEL GLUCOSE [MASS/VOLUME] IN SERUM OR PLASMA 102 mg/dL 72 - 99 03/16 H Specimen Type: PLASMA No comment entered. Ordering Provider: TINO GILES Report Released Date/Time : Mar 11, 2025 11:57 AM Reporting Lab: [place] [facility] [address] [place] [address] Performin g Lab: [place] [facility] [address] [place] [address] [facility] BASIC METABOLIC PANEL SODIUM [MOLES/VOLUME ] IN SERUM OR PLASMA 139 meq/L 136 - 145 03/16 Specimen Type: PLASMA No comment entered. Ordering Provider: TINO GILES Report Released Date/Time : Mar 11, 2025 11:57 AM Reporting Lab: [place] [facility] [address] [place] [address] Performin g Lab: [place] [facility] [address] [place] [address] [facility] BASIC METABOLIC PANEL POTASSIUM [MOLES/VOLUME ] IN SERUM OR PLASMA 5.1 meq/L 3.5 - 5 03/16 H Specimen Type: PLASMA No comment entered. Ordering Provider: TINO GILES Report Released Date/Time : Mar 11, 2025 11:57 AM Reporting Lab: [place] [facility] [address] [place] [address] Performin g Lab: [place] [facility] [address] [place] [address] [facility] BASIC METABOLIC PANEL CHLORIDE [MOLES/VOLUME ] IN SERUM OR PLASMA 107 meq/L 98 - 107 03/16 Specimen Type: PLASMA No comment entered. Ordering Provider: TINO GILES Report Released Date/Time : Mar 11, 2025 11:57 AM Reporting Lab: [place] [facility] [address] [place] [address] Performin g Lab: [place] [facility] [address] [place] [address] [facility] BASIC METABOLIC PANEL CARBON DIOXIDE, TOTAL [MOLES/VOLUME ] IN SERUM OR PLASMA 24 meq/L 22 - 31 03/16 Specimen Type: PLASMA No comment entered. Ordering Provider: TINO GILES Report Released Date/Time : Mar 11, 2025 11:57 AM Reporting Lab: [place] [facility] [address] [place] [address] Performin g Lab: [place] [facility] [address] [place] [address] [facility] BASIC METABOLIC PANEL CALCIUM [MASS/VOLUME] IN SERUM OR PLASMA 8.6 mg/dL 8.4 - 10.4 03/16 Specimen Type: PLASMA No comment entered. Ordering Provider: TINO GILES Report Released Date/Time : Mar 11, 2025 11:57 AM Reporting Lab: [place] [facility] [address] [place] [address] Performin g Lab: [place] [facility] [address] [place] [address] [facility] BASIC METABOLIC PANEL GLOMERULAR FILTRATION RATE/1.73 SQ M.PREDICTED [VOLUME RATE/AREA] IN SERUM, PLASMA OR BLOOD BY CREATININE-BA SED FORMULA (CKD-EPI 2020) 80 03/16 Specimen Type: PLASMA No comment entered. Ordering Provider: TINO GILES Report Released Date/Time : Mar 11, 2025 11:57 AM Reporting Lab: [place] [facility] [address] [place] [address] Performin g Lab: [place] [facility] [address] [place] [address] [facility] TSH (MA-PB) THYROTROPIN [UNITS/VOLUME ] IN SERUM OR PLASMA 2.124 u[IU]/ mL 0.47 - 5 03/09 Specimen Type: SERUM No comment entered. Ordering Provider: TINO GILES Report Released Date/Time : Mar 03, 2025 03:18 PM Reporting Lab: [place] [facility] [address] [place] [address] Performin g Lab: [place] [facility] [address] [place] [address] [place] [facility] HGA1C HEMOGLOBIN A1C/HEMOGLOBI N.TOTAL IN BLOOD 5.1 4.0 - 6.0 03/09 Specimen Type: BLOOD No comment entered. Ordering Provider: TINO GILES Report Released Date/Time : Mar 03, 2025 03:18 PM Reporting Lab: [place] [facility] [address] [place] [address] Performin g Lab: [place] [facility] [address] [place] [address] [place] [facility] CHOLESTEROL PANEL (PB) CHOLESTEROL [MASS/VOLUME] IN SERUM OR PLASMA 122 mg/dL 0 - 200 03/09 Specimen Type: PLASMA No comment entered. Ordering Provider: TINO GILES Report Released Date/Time : Mar 03, 2025 03:18 PM Reporting Lab: [place] [facility] [address] [place] [address] Performin g Lab: [place] [facility] [address] [place] [address] [place] [facility] CHOLESTEROL PANEL (PB) TRIGLYCERIDE [MASS/VOLUME] IN SERUM OR PLASMA 38 mg/dL 0 - 150 03/09 Specimen Type: PLASMA No comment entered. Ordering Provider: TINO GILES Report Released Date/Time : Mar 03, 2025 03:18 PM Reporting Lab: [place] [facility] [address] [place] [address] Performin g Lab: [place] [facility] [address] [place] [address] [place] [facility] CHOLESTEROL PANEL (PB) CHOLESTEROL IN LDL [MASS/VOLUME] IN SERUM OR PLASMA BY CALCULATION 49.3 mg/dL 03/09 Specimen Type: PLASMA No comment entered. Ordering Provider: TINO GILES Report Released Date/Time : Mar 03, 2025 03:18 PM Reporting Lab: [place] [facility] [address] [place] [address] Performin g Lab: [place] [facility] [address] [place] [address] [place] [facility] CHOLESTEROL PANEL (PB) CHOLESTEROL IN HDL [MASS/VOLUME] IN SERUM OR PLASMA 65.1 mg/dL 40 03/09 H Specimen Type: PLASMA No comment entered. Ordering Provider: TINO GILES Report Released Date/Time : Mar 03, 2025 03:18 PM Reporting Lab: [place] [facility] [address] [place] [address] Performin g Lab: [place] [facility] [address] [place] [address] [place] [facility] CHOLESTEROL PANEL (PB) CHOLESTEROL IN HDL/CHOLESTER OL.TOTAL [MASS RATIO] IN SERUM OR PLASMA 53.4 25 03/09 Specimen Type: PLASMA No comment entered. Ordering Provider: TINO GILES Report Released Date/Time : Mar 03, 2025 03:18 PM Reporting Lab: [place] [facility] [address] [place] [address] Performin g Lab: [place] [facility] [address] [place] [address] [place] [facility] COMPREHENSI VE METABOLIC PANEL CREATININE [MASS/VOLUME] IN SERUM OR PLASMA 1.04 mg/dL 0.7 - 1.3 03/09 Specimen Type: PLASMA No comment entered. Ordering Provider: TINO GILES Report Released Date/Time : Mar 03, 2025 03:18 PM Reporting Lab: [place] [facility] [address] [place] [address] Performin g Lab: [place] [facility] [address] [place] [address] [place] [facility] COMPREHENSI VE METABOLIC PANEL UREA NITROGEN [MASS/VOLUME] IN SERUM OR PLASMA 20 mg/dL 9 - 25 03/09 Specimen Type: PLASMA No comment entered. Ordering Provider: TINO GILES Report Released Date/Time : Mar 03, 2025 03:18 PM Reporting Lab: [place] [facility] [address] [place] [address] Performin g Lab: [place] [facility] [address] [place] [address] [place] [facility] COMPREHENSI VE METABOLIC PANEL GLUCOSE [MASS/VOLUME] IN SERUM OR PLASMA 98 mg/dL 72 - 99 03/09 Specimen Type: PLASMA No comment entered. Ordering Provider: TINO GILES Report Released Date/Time : Mar 03, 2025 03:18 PM Reporting Lab: [place] [place] [facility] [address] [place] [address] Performin g Lab: [place] [facility] [address] [place] [address] 8 [place] [facility] COMPREHENSI VE METABOLIC PANEL SODIUM [MOLES/VOLUME ] IN SERUM OR PLASMA 140 meq/L 136 - 145 03/09 Specimen Type: PLASMA No comment entered. Ordering Provider: TINO GILES Report Released Date/Time : Mar 03, 2025 03:18 PM Reporting Lab: [place] [facility] [address] [place] [address] Performin g Lab: [place] [facility] [address] [place] [address] [place] [facility] COMPREHENSI VE METABOLIC PANEL POTASSIUM [MOLES/VOLUME ] IN SERUM OR PLASMA 5.4 meq/L 3.5 - 5 03/09 H Specimen Type: PLASMA No comment entered. Ordering Provider: TINO GILES Report Released Date/Time : Mar 03, 2025 03:18 PM Reporting Lab: [place] [facility] [address] [place] [address] Performin g Lab: [place] [facility] [address] [place] [address] [place] [facility] COMPREHENSI VE METABOLIC PANEL CHLORIDE [MOLES/VOLUME ] IN SERUM OR PLASMA 107 meq/L 98 - 107 03/09 Specimen Type: PLASMA No comment entered. Ordering Provider: TINO GILES Report Released Date/Time : Mar 03, 2025 03:18 PM Reporting Lab: [place] [facility] [address] [place] [address] Performin g Lab: [place] [facility] [address] [place] [address] [place] [facility] COMPREHENSI VE METABOLIC PANEL CARBON DIOXIDE, TOTAL [MOLES/VOLUME ] IN SERUM OR PLASMA 26 meq/L 22 - 31 03/09 Specimen Type: PLASMA No comment entered. Ordering Provider: TINO GILES Report Released Date/Time : Mar 03, 2025 03:18 PM Reporting Lab: [place] [facility] [address] [place] [address] Performin g Lab: [place] [facility] [address] [place] [address] [place] [facility] COMPREHENSI VE METABOLIC PANEL CALCIUM [MASS/VOLUME] IN SERUM OR PLASMA 9.5 mg/dL 8.4 - 10.4 03/09 Specimen Type: PLASMA No comment entered. Ordering Provider: TINO GILES Report Released Date/Time : Mar 03, 2025 03:18 PM Reporting Lab: [place] [facility] [address] [place] [address] 8 Performin g Lab: [place] [facility] [address] [place] [address] 8 [place] [facility] COMPREHENSI VE METABOLIC PANEL PROTEIN [MASS/VOLUME] IN SERUM OR PLASMA 6.7 g/dL 6 - 8.6 03/09 Specimen Type: PLASMA No comment entered. Ordering Provider: TINO GILES Report Released Date/Time : Mar 03, 2025 03:18 PM Reporting Lab: [place] [facility] [address] [place] [address] 8 Performin g Lab: [place] [facility] [address] [place] [address] 8 [place] [facility] COMPREHENSI VE METABOLIC PANEL ALBUMIN [MASS/VOLUME] IN SERUM OR PLASMA 4.1 g/dL 3.4 - 5 03/09 Specimen Type: PLASMA No comment entered. Ordering Provider: TINO GILES Report Released Date/Time : Mar 03, 2025 03:18 PM Reporting Lab: [place] [facility] [address] [place] [address] 8 Performin g Lab: [place] [facility] [address] [place] [address] [place] [facility] COMPREHENSI VE METABOLIC PANEL BILIRUBIN.TOT AL [MASS/VOLUME] IN SERUM OR PLASMA 0.5 mg/dL 0.2 - 1.2 03/09 Specimen Type: PLASMA No comment entered. Ordering Provider: TINO GILES Report Released Date/Time : Mar 03, 2025 03:18 PM Reporting Lab: [place] [facility] [address] [place] [address] 8 Performin g Lab: [place] [facility] [address] [place] [address] 8 [place] [facility] COMPREHENSI VE METABOLIC PANEL ALKALINE PHOSPHATASE [ENZYMATIC ACTIVITY/VOLU ME] IN SERUM OR PLASMA 70 U/L 40 - 150 03/09 Specimen Type: PLASMA No comment entered. Ordering Provider: TINO GILES Report Released Date/Time : Mar 03, 2025 03:18 PM Reporting Lab: [place] [facility] [address] [place] [address] Performin g Lab: [place] [facility] [address] [place] [address] [place] [facility] COMPREHENSI VE METABOLIC PANEL ASPARTATE AMINOTRANSFER ASE [ENZYMATIC ACTIVITY/VOLU ME] IN SERUM OR PLASMA 19 U/L 5 - 34 03/09 Specimen Type: PLASMA No comment entered. Ordering Provider: TINO GILES Report Released Date/Time : Mar 03, 2025 03:18 PM Reporting Lab: [place] [facility] [address] [place] [address] Performin g Lab: [place] [facility] [address] [place] [address] [place] [facility] COMPREHENSI VE METABOLIC PANEL ALANINE AMINOTRANSFER ASE [ENZYMATIC ACTIVITY/VOLU ME] IN SERUM OR PLASMA 13 U/L 8 - 40 03/09 Specimen Type: PLASMA No comment entered. Ordering Provider: TINO GILES Report Released Date/Time : Mar 03, 2025 03:18 PM Reporting Lab: [place] [facility] [address] [place] [address] 8 Performin g Lab: [place] [facility] [address] [place] [address] 8 [place] [facility] COMPREHENSI VE METABOLIC PANEL GLOMERULAR FILTRATION RATE/1.73 SQ M.PREDICTED [VOLUME RATE/AREA] IN SERUM, PLASMA OR BLOOD BY CREATININE-BA SED FORMULA (CKD-EPI 2020) 76 03/09 Specimen Type: PLASMA No comment entered. Ordering Provider: TINO GILES Report Released Date/Time : Mar 03, 2025 03:18 PM Reporting Lab: [place] [facility] [address] [place] [address] Performin g Lab: [place] [facility] [address] [place] [address] [place] [facility] CBC LEUKOCYTES [#/VOLUME] IN BLOOD BY AUTOMATED COUNT 9.3 10*3/u L 3.6 - 11.2 03/09 Specimen Type: BLOOD No comment entered. Ordering Provider: TINO GILES Report Released Date/Time : Mar 03, 2025 03:18 PM Reporting Lab: [place] [facility] [address] [place] [address] 8 Performin g Lab: [place] [facility] [address] [place] [address] [place] [facility] CBC ERYTHROCYTES [#/VOLUME] IN BLOOD BY AUTOMATED COUNT 4.28 10*6/u L 4.10 - 5.70 03/09 Specimen Type: BLOOD No comment entered. Ordering Provider: TINO GILES Report Released Date/Time : Mar 03, 2025 03:18 PM Reporting Lab: [place] [facility] [address] [place] [address] Performin g Lab: [place] [facility] [address] [place] [address] [place] [facility] CBC HEMOGLOBIN [MASS/VOLUME] IN BLOOD 14.2 g/dL 13.1 - 16.8 03/09 Specimen Type: BLOOD No comment entered. Ordering Provider: TINO GILES Report Released Date/Time : Mar 03, 2025 03:18 PM Reporting Lab: [place] [facility] [address] [place] [address] Performin g Lab: [place] [facility] [address] [place] [address] [place] [facility] CBC HEMATOCRIT [VOLUME FRACTION] OF BLOOD 42.2 38.2 - 48.4 03/09 Specimen Type: BLOOD No comment entered. Ordering Provider: TINO GILES Report Released Date/Time : Mar 03, 2025 03:18 PM Reporting Lab: [place] [facility] [address] [place] [address] 8 Performin g Lab: [place] [facility] [address] [place] [address] [place] [facility] CBC MCV [ENTITIC VOLUME] BY AUTOMATED COUNT 98.6 fL 80.0 - 100.0 03/09 Specimen Type: BLOOD No comment entered. Ordering Provider: TINO GILES Report Released Date/Time : Mar 03, 2025 03:18 PM Reporting Lab: [place] [facility] [address] [place] [address] 8 Performin g Lab: [place] [facility] [address] [place] [address] 8 [place] [facility] CBC MCH [ENTITIC MASS] BY AUTOMATED COUNT 33.2 pg 27.0 - 34.0 03/09 Specimen Type: BLOOD No comment entered. Ordering Provider: TINO GILES Report Released Date/Time : Mar 03, 2025 03:18 PM Reporting Lab: [place] [facility] [address] [place] [address] Performin g Lab: [place] [facility] [address] [place] [address] [place] [facility] CBC MCHC [MASS/VOLUME] BY AUTOMATED COUNT 33.6 g/dL 33.0 - 36.0 03/09 Specimen Type: BLOOD No comment entered. Ordering Provider: TINO GILES Report Released Date/Time : Mar 03, 2025 03:18 PM Reporting Lab: [place] [facility] [address] [place] [address] 8 Performin g Lab: [place] [facility] [address] [place] [address] [place] [facility] CBC PLATELETS [#/VOLUME] IN BLOOD BY AUTOMATED COUNT 236 10*3/u L 150 - 400 03/09 Specimen Type: BLOOD No comment entered. Ordering Provider: TINO GILES Report Released Date/Time : Mar 03, 2025 03:18 PM Reporting Lab: [place] [facility] [address] [place] [address] Performin g Lab: [place] [facility] [address] [place] [address] [place] [facility] CBC PLATELET MEAN VOLUME [ENTITIC VOLUME] IN BLOOD BY AUTOMATED COUNT 11.1 fL 7.5 - 11.2 03/09 Specimen Type: BLOOD No comment entered. Ordering Provider: TINO GILES Report Released Date/Time : Mar 03, 2025 03:18 PM Reporting Lab: [place] [facility] [address] [place] [address] Performin g Lab: [place] [facility] [address] [place] [address] [place] [facility] CBC ERYTHROCYTE DISTRIBUTION WIDTH [RATIO] BY AUTOMATED COUNT 12.4 11.8 - 15.1 03/09 Specimen Type: BLOOD No comment entered. Ordering Provider: TINO GILES Report Released Date/Time : Mar 03, 2025 03:18 PM Reporting Lab: [place] [facility] [address] [place] [address] 8 Performin g Lab: [place] [facility] [address] [place] [address] 8 [place] [facility] CBC LYMPHOCYTES/1 00 LEUKOCYTES IN BLOOD BY AUTOMATED COUNT 14.3 03/09 Specimen Type: BLOOD No comment entered. Ordering Provider: TINO GILES Report Released Date/Time : Mar 03, 2025 03:18 PM Reporting Lab: [place] [facility] [address] [place] [address] Performin g Lab: [place] [facility] [address] [place] [address] [place] [facility] CBC MONOCYTES/100 LEUKOCYTES IN BLOOD BY AUTOMATED COUNT 6.2 03/09 Specimen Type: BLOOD No comment entered. Ordering Provider: TINO GILES Report Released Date/Time : Mar 03, 2025 03:18 PM Reporting Lab: [place] [facility] [address] [place] [address] Performin g Lab: [place] [facility] [address] [place] [address] 8 [place] [facility] CBC NEUTROPHILS/1 00 LEUKOCYTES IN BLOOD BY AUTOMATED COUNT 76.7 03/09 Specimen Type: BLOOD No comment entered. Ordering Provider: TINO GILES Report Released Date/Time : Mar 03, 2025 03:18 PM Reporting Lab: [place] [facility] [address] [place] [address] 8 Performin g Lab: [place] [facility] [address] [place] [address] 8 [place] [facility] CBC EOSINOPHILS/1 00 LEUKOCYTES IN BLOOD BY AUTOMATED COUNT 2.4 03/09 Specimen Type: BLOOD No comment entered. Ordering Provider: TINO GILES Report Released Date/Time : Mar 03, 2025 03:18 PM Reporting Lab: [place] [facility] [address] [place] [address] 8 Performin g Lab: [place] [facility] [address] [place] [address] 8 [place] [facility] CBC BASOPHILS/100 LEUKOCYTES IN BLOOD BY AUTOMATED COUNT 0.1 03/09 Specimen Type: BLOOD No comment entered. Ordering Provider: TINO GILES Report Released Date/Time : Mar 03, 2025 03:18 PM Reporting Lab: [place] [facility] [address] [place] [address] 8 Performin g Lab: [place] [facility] [address] [place] [address] 8 [place] [facility] CBC LYMPHOCYTES [#/VOLUME] IN BLOOD BY AUTOMATED COUNT 1.33 10*3/u L 0.77 - 4.50 03/09 Specimen Type: BLOOD No comment entered. Ordering Provider: TINO GILES Report Released Date/Time : Mar 03, 2025 03:18 PM Reporting Lab: [place] [facility] [address] [place] [address] Performin g Lab: [place] [facility] [address] [place] [address] [place] [facility] CBC MONOCYTES [#/VOLUME] IN BLOOD BY AUTOMATED COUNT 0.58 10*3/u L 0.19 - 0.8 03/09 Specimen Type: BLOOD No comment entered. Ordering Provider: TINO GILES Report Released Date/Time : Mar 03, 2025 03:18 PM Reporting Lab: [place] [facility] [address] [place] [address] 8 Performin g Lab: [place] [facility] [address] [place] [address] 8 [place] [facility] CBC NEUTROPHILS [#/VOLUME] IN BLOOD BY AUTOMATED COUNT 7.16 10*3/u L 2.10 - 8.00 03/09 Specimen Type: BLOOD No comment entered. Ordering Provider: TINO GILES Report Released Date/Time : Mar 03, 2025 03:18 PM Reporting Lab: [place] [facility] [address] [place] [address] Performin g Lab: [place] [facility] [address] [place] [address] 8 [place] [facility] CBC EOSINOPHILS [#/VOLUME] IN BLOOD BY AUTOMATED COUNT 0.22 10*3/u L 0.00 - 0.60 03/09 Specimen Type: BLOOD No comment entered. Ordering Provider: TINO GILES Report Released Date/Time : Mar 03, 2025 03:18 PM Reporting Lab: [place] [facility] [address] [place] [address] 8 Performin g Lab: [place] [facility] [address] [place] [address] [place] [facility] CBC BASOPHILS [#/VOLUME] IN BLOOD BY AUTOMATED COUNT 0.01 10*3/u L 0.00 - 0.20 03/09 Specimen Type: BLOOD No comment entered. Ordering Provider: TINO GILES Report Released Date/Time : Mar 03, 2025 03:18 PM Reporting Lab: [place] [facility] [address] [place] [address] 8 Performin g Lab: [place] [facility] [address] [place] [address] 8 [place] [facility] CBC IMMATURE GRANULOCYTES/ 100 LEUKOCYTES IN BLOOD BY AUTOMATED COUNT 0.3 03/09 Specimen Type: BLOOD No comment entered. Ordering Provider: TINO GILES Report Released Date/Time : Mar 03, 2025 03:18 PM Reporting Lab: [place] [facility] [address] [place] [address] 8 Performin g Lab: [place] [facility] [address] [place] [address] 8 [place] [facility] CBC IMMATURE GRANULOCYTES [#/VOLUME] IN BLOOD BY AUTOMATED COUNT 0.03 10*3/u L 0.00 - 0.05 03/09 Specimen Type: BLOOD No comment entered. Ordering Provider: TINO GILES Report Released Date/Time : Mar 03, 2025 03:18 PM Reporting Lab: [place] [facility] [address] [place] [address] 8 Performin g Lab: [place] [facility] [address] [place] [address] [place] [facility] TACROLIMUS (STL-PB) TACROLIMUS [MASS/VOLUME] IN BLOOD 10.0 ng/mL 03/11 Specimen Type: BLOOD No comment entered. Ordering Provider: SULMA DOE Report Released Date/Time : Mar 09, 2024 11:41 AM Reporting Lab: [facility] [address] [facility] [address] Performin g Lab: [facility] [address] [facility] [address] [facility] VITAMIN D, 25-HYDROXY 25-HYDROXYVIT WHITE D3 [MASS/VOLUME] IN SERUM OR PLASMA 35.8 ng/mL 30 - 96 03/11 Specimen Type: SERUM No comment entered. Ordering Provider: SULMA DOE Report Released Date/Time : Mar 09, 2024 11:41 AM Reporting Lab: [place] [facility] [address] [place] [address] Performin g Lab: [place] [facility] [address] [place] [address] [facility] HGA1C HEMOGLOBIN A1C/HEMOGLOBI N.TOTAL IN BLOOD 5.0 4.0 - 6.0 03/11 Specimen Type: BLOOD No comment entered. Ordering Provider: SULMA DOE Report Released Date/Time : Mar 09, 2024 11:41 AM Reporting Lab: [place] [facility] [address] [place] [address] Performin g Lab: [place] [facility] [address] [place] [address] [facility] TSH (MA-PB) THYROTROPIN [UNITS/VOLUME ] IN SERUM OR PLASMA 2.368 u[IU]/ mL 0.47 - 5 03/11 Specimen Type: SERUM No comment entered. Ordering Provider: SULMA DOE Report Released Date/Time : Mar 09, 2024 11:41 AM Reporting Lab: [place] [facility] [address] [place] [address] Performin g Lab: [place] [facility] [address] [place] [address] [facility] Vital Signs Combined list of inpatient and outpatient Vital Signs from Department of [facility] and [facility], ranging from 12 months to all on record, depending upon the facility. Vital Sign Value Date Comments Source SYSTOLIC BLOOD PRESSURE 136 03/09/2025 10:52:00 [facility] DIASTOLIC BLOOD PRESSURE 75 03/09/2025 10:52:00 [facility] PULSE OXIMETRY 99 03/09/2025 10:52:00 [facility] WEIGHT 160.5 03/09/2025 10:52:00 [facility] BMI 21 kg/m2 03/09/2025 10:52:00 [facility] PAIN 2 03/09/2025 10:52:00 [facility] TEMPERATURE 97.5 03/09/2025 10:52:00 [facility] PULSE 62 03/09/2025 10:52:00 [facility] RESPIRATION 18 03/09/2025 10:52:00 [facility] Encounters Combined list of: 1) Encounters from Department of [facility] facilities going backup to the last 18 months, not all [place] inpatient encounters are included; 2) Encounters from the Department [facility] facilities going backup to 280 months. Location Location Details Encounter Type Encounter Number Reason For Visit Attending Provider ADM Date DC Date Status Disposition Source [facility] Outpatient Encounter [id number] 12/23 [facility] [place] [facility] Outpatient Encounter [id number] 12/31 [place] [facility] Outpatient Encounter [id number] 01/11 [facility] Outpatient Encounter [id number] 01/22 [facility] Outpatient Encounter [id number] 02/04 [facility] Outpatient Encounter [id number] Darrin DOE 02/10 [facility] En[facility] [id number] 02[facility] [id number] 02/12 [facility] Outpatient Encounter [id number] 03/11 [facility] OFFICE O/P EST MOD 30 MIN [id number] Diagnos is: ICD-10- CM Z94.1 Heart transpl ant status Darrin DOE 03/11 [facility] Outpatient Encounter [id number] Darrin DOE 03/12 [facility] Outpatient Encounter [id number] GERONIMO BARRAGAN 03/12 [facility] Outpatient Encounter [id number] 03/12 [facility] Outpatient Encounter [id number] 03/12 [place] Outpatient Encounter [id number] 03/17 [facility] Outpatient Encounter [id number] 03/18 [facility] Outpatient Encounter [id number] 03/24 [facility] Outpatient Encounter [id number] 03/24 [facility] Outpatient Encounter [id number] 04/02 [facility] OFF/OP EST MARCH X REQ PHY/QHP [id number] Diagnos is: ICD-10- CM T18.9XX A Foreign body of aliment rosemary tract, part unsp, init encntr JILL HUANG A 05/04 [facility] Outpatient Encounter [id number] 07/03 [facility] Outpatient Encounter [id number] 07/29 [facility] Outpatient Encounter [id number] 08/03 [facility] Outpatient Encounter [id number] [id number] 08/04 [facility] Outpatient Encounter [id number] 08/10 [facility] Outpatient Encounter [id number] [id number] 08/17 [facility] Outpatient Encounter [id number] 08/18 [facility] PRO PHONE CALL 5-10 MIN [id number] Diagnos is: ICD-10- CM R93.89 Abnorma l finding s on dx imaging of oth body structu res DARIANA PETERSON R 09/02 [facility] Outpatient Encounter [id number] [id number] 09/04 [facility] Outpatient Encounter [id number] [id number] 5 09/04 [facility] Outpatient Encounter [id number] [id number] 09/08 [facility] Outpatient Encounter [id number] [id number] 09/26 [facility] Outpatient Encounter [id number] [id number] 12/22 [facility] Outpatient Encounter [id number] [id number] 12/29 [facility] Outpatient Encounter [id number] [id number] 01/05 [facility] Outpatient Encounter [id number] [id number] 01/08 [facility] OFFICE O/P EST MOD 30 MIN [id number] Diagnos is: ICD-10- CM F33.9 Major depress carlos disorde r, recurre nt, unspeci fied Chana GILES LEXII 03/09 [facility] Outpatient Encounter [id number] 03/11 [facility] Outpatient Encounter [id number] [id number] 03/19 [facility] Outpatient Encounter [id number] [id number] 03/24 [facility] Outpatient Encounter [id number] [id number] 04/15 [facility] Outpatient Encounter [id number] [id number] 5 04/28 [facility] Social History Combined list of available smoking, tobacco, and other social history from Department of Defense and Veterans Affairs facilities. Social History Type Response Date Comment [facility] e Tobacco smoking status LAIS VA-TOBACCO USE SOME DAYS OTHER TYPE 03/09/2025 [facility] History of tobacco use VA-TOBACCO USE SOME DAYS CIGARS/PIPES 03/09/2025 [facility] History of tobacco use VA-TOBACCO FORMER USER 03/12/2023 [facility] History of tobacco use VA-TOBACCO FORMER USER 03/16/2022 [facility] History of tobacco use VA-TOBACCO USER SOME DAYS 03/14/2021 [facility] History of tobacco use VA-TOBACCO FORMER USER 03/24/2019 [facility] History of tobacco use QUIT TOBACCO >7 YEARS AGO 03/14/2018 [facility] History of tobacco use QUIT TOBACCO >7 YEARS AGO 12/03/2017 [facility] History of tobacco use LIFETIME NON-USER OF TOBACCO 03/20/2012 [facility] History of tobacco use QUIT TOBACCO >12 MO and <7 YRS AGO 12/08/2010 [facility] History of tobacco use QUIT TOBACCO >12 MO and <7 YRS AGO 12/26/2009 [facility] History of tobacco use TOBACCO OFFERED PT MEDS (PROVIDER) 12/17/2008 yes is willing to stop smoking [facility] History of tobacco use TOBACCO OFFERRED STOP SMOKING CLINIC 06/21/2008 [facility] History of tobacco use QUIT TOBACCO >7 YEARS AGO 03/01/2008 [facility] History of tobacco use CURRENT TOBACCO USER 07/30/2007 [facility] History of tobacco use CURRENT TOBACCO USER 08/07/2006 [facility] History of tobacco use CURRENT TOBACCO USER 11/16/2005 [facility] History of tobacco use CURRENT NON-TOBACCO USER-HX OF USE 08/24/2005 [facility] History of tobacco use CURRENT TOBACCO USER 06/20/2005 [facility] History of tobacco use CURRENT NON-TOBACCO USER-HX OF USE 04/03/2005 [facility] History of tobacco use CURRENT TOBACCO USER 01/08/2005 [facility] History of tobacco use CURRENT TOBACCO USER 12/29/2004 [place] [place] [facility] History of tobacco use CURRENT TOBACCO USER 12/29/2004 [facility] History of tobacco use CURRENT NON-TOBACCO USER-HX OF USE 06/29/2004 [facility] History of tobacco use TOB-CURRENT NON-SMOKER BUT HX 07/14/2003 [facility] History of tobacco use CURRENT TOBACCO USER 09/08/2002 [facility] History of tobacco use CURRENT NON-TOBACCO USER-HX OF USE 02/24/2002 [facility] This section is an empty social history section. DoD Plan of Care List of future care activities from Department of Veterans Affairs facilities. Additional future care activities may be listed in the Assessment and Plan section. Date/Time Care Activity Care Activity Detail Facili ty 06/04/2025 AMBULATORY - MEDICINE AMBULATORY - MEDICI NE [facility] Advance Directives List of completed, amended, or rescinded Advance Directives on record at Department of [facility] Affairs facilities. An actual copy of the Directive is not included. Date Advance Directive Provider Source 02/17/2014 ADVANCE DIRECTIVE DISCUSSION KENNETH FONTENOT [facility] 08/11/2013 ADVANCE DIRECTIVE DISCUSSION ANGELA MARTINEZ [facility] 07/05/2011 ADVANCE DIRECTIVE DISCUSSION KENNETH FONTENOT [facility] 03/31/2002 ADVANCE DIRECTIVE RANDY [facility]ARR[facility]A [facility]
--- OUTSIDE RECORDS SUMMARY | 2025-06-22 13:24 | XMS_ITS | Patient Health Record ---
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 Name Role Phone [facility] Xander KYLE Primary Care Provider Un available Kodi Stover Unavailable [phone] Migration, Provider Unavailable Unavailable Whitney Bills Unavailable [phone] Allergies Allergen (clinical drug ingredient) Drug/Non Drug Allergy documented on EMR Reaction Allergy Type Onset Date Status morphine Morphine , Drug Allergy Active Morphine and Related Reaction 1:Rash Drug Allergy 04/02/2024 active Results Component Value Reference Range Notes UA Without Micro-[place], [place] - [address] Reviewed date:01/28/2025 03:05:59 PM Interpretation: Performing Lab: Notes/Report: Glucose 0 Bili 0 Ketones 0 Sp Hickman 1.020 Blood 0 pH 6.0 Protein 0 Urobili 0 Nitrites 0 Leukocytes 0 UA W/O Microscopic [id number] Reviewed date:08/04/2024 01:50:01 PM Interpretation: Performing Lab: Notes/Report: Specific gravity UA 1.020 Urine pH 6.0 Urine Glucose 0 Urine Bilirubin 1+ Urine Ketone 0 Urine Blood 0 Urine Protein 1+ Urobilinogen 0 Urine Nitrite 0 Urine Leukocyte 0 US Doppler Aorta, IVC, Iliac -[id number] (Not yet reviewed by provider) Interpretation: Performing Lab: Notes/Report: [id number]=[id number] US Doppler Aorta, IVC, Iliac -[id number] (Not yet reviewed by provider) Interpretation: Performing Lab: Notes/Report: This report was dictated at the [facility] FINAL REPORT Read This report was dict ated at the [facility] Reason For Referral Reason Urge incontinence Referring Provider First Name Abigail Hdez ff Referring Provider Last Name [place] Referring Provider Speciality [facility] Referred Organization [facility] Referred Provider Gregory Jones Referred Address [address],[place],[address],[place] Referred Provider Specialty Urology Referral Priority Routine Reason 4.6 cm AAA per US - patient did not have CTA due to being a heart transplant patient next appt 09/15/24 RFS Sent 08/14/24 Diagnosis 1 Infrarenal abdominal aortic aneurysm (AAA) without rupture (I71.43) Referring Provider First Name [facility] Referring Provider Last Name [facility] Referring Provider Speciality [facility] Referred Organization [facility] Referred Provider Kodi Stover Referred Address [address] [facility] [address],[address],[place] Referred Provider Specialty Vascular Muna lionel General Notes Lizz Kiran 12/23/19 24 10:13:56 AM >please schedule with Dr. Stover Referral Priority Routine Medications Medication SIG (Take, Route, Frequency, Duration) Notes Start Date End Date Status Alendronate Sodium 70 MG Tablet 1 tablet 30 minutes before the first food, beverage or medicine of the day with plain water Orally once a week Active Aspirin 81 MG Tablet Delayed Release 1 tablet Orally Once a day Active sertraline 100 MG Oral Tablet [Zoloft] ORAL *Reorder from [facility] for eRx and Interaction Alerts* 02/13/2024 Active Atorvastatin Calcium 40 MG Tablet 1 tablet Orally Once a day Active Sulfamethoxazole-Trimet hoprim 800-160 MG Tablet 1 tablet Orally Saturday, Saturday, Saturday Active azaTHIOprine 50 MG Tablet 1 tablet Orally once a day Active Tacrolimus 1 MG Capsule 2 capsules Orall y twice a day Active Cholecalciferol 1.25 MG (54815 UT) Capsule 1 capsule Orally once a month Active Tamsulosin HCl 0.4 MG Capsule 1 capsule Orally Once a day Active dilTIAZem HCl ER 120 MG Capsule Extended Release 12 Hour 1 capsule Orally Twice a day Active Zoloft 100 MG Tablet 2 tablets Orally Once a day Active Fluticasone Propionate 50 MCG/ACT Suspension Nasal 02/13/2024 Active Levothyroxine Sodium 25 MCG Tablet 1 tablet in the morning on an empty stomach Orally Once a day Active Lisinopril 10 MG Tablet 0.5 tablet Orall y twice aq day Active Magnesium Oxide 400 MG Tablet 2 tablets Orally Once a day Active Immunizations Vaccine Route Administration Date Status Comme nts Influenza (whole), CPT 16663 Inactive Unknown 08/25/2016 Administered Social History Tobacco Use: Social History Observation Description Date Details (start date - stop date) Current Smoker NA - NA Social History Drugs/Alcohol: Social Info Question Answer Notes Drugs Have you used drugs other than those for medical reasons in the past 12 months? Yes Marijuana? Yes Drug/Alcohol: Social Info Question Answer Notes AUDIT-C (Standard) Did you have a drink containing alcohol in the past year? Yes How often did you have a drink containing alcohol in the past year? 2 to 3 times a week (3 points) How many drinks did you have on a typical day when you were drinking in the past year? 1 or 2 drinks (0 point) How often did you have six or more drinks on one occasion in the past year? Never (0 point) Points 3 Interpretation Negative Tobacco Use: Social Info Question Answer Notes Tobacco Control (Standard) Tobacco use: Current smoker How often do you smoke cigarettes? Every day How many cigarettes a day do you smoke? 5 or less Additional Findings: Tobacco user Cigar smoker Additional Details Category Social Info Options Details Migrated Social History Migrated Social History Alcohol intake : , Smoking Status : Former tobacco user , History of tobacco use : zzMigrated Social History Migrated Social History Smoking Status:Ex-smoker (finding) Section Notes: Caffeine- 1-2 cups coffee daily Alcohol- when he feels like it. Caffeine- 1-2 cups coffee daily Alcohol- when he feels like it. Caffeine- 1-2 cups coffee daily Alcohol- when he feels like it. Problems Problem Type SNOMED Code ICD Code Onset Dates Problem Status W/U Status Risk Notes Problem Diverticular disease of colon (122954062) Diverticulosis of large intestine without perforation or abscess without bleeding (K57.30) Active confirmed Problem Nocturia (785024627) Nocturia (R35.1) Active confirmed Problem Urinary frequency (035738659) Urinary frequency (R35.0) Active confirmed Problem Urinary retention (260398614) Urinary retention (R33.9) Active confirmed Problem History of adenomatous polyp of colon (228895771) History of adenomatous polyp of colon (Z86.010) Active confirmed Problem Urge urinary incontinence (24918606) Urge urinary incontinence (N39.41) Active confirmed Problem Urgency of micturition (74185132) Urgency of micturition (R39.15) Active confirmed Problem Aneurysm of infrarenal abdominal aorta (disorder) (203038887) Infrarenal abdominal aortic aneurysm (AAA) without rupture (I71.43) Active confirmed Problem Abdominal aortic aneurysm without rupture (disorder) (65400639) Abdominal aortic aneurysm (AAA) without rupture, unspecified part (I71.40) Active confirmed Vital Signs Heart Rate 77 /min 01/28/2025 Temperature 98.4 degrees Fahrenheit 01/28/2025 Oximetry 96 % 12/22/2024 Blood pressure diastolic 85 mm Hg 01/28/2025 Height-cm 187.96 cm 01/28/2025 Weight-kg 74.12 kg 01/28/2025 Height 74.00 in 01/28/2025 Blood pressure systolic 114 mm Hg 01/28/2025 Weight 163.4 lbs 01/28/2025 BMI 20.98 kg/m2 01/28/2025 Procedures Procedure Date Ordered Date Performed Result Body Sit e PVR (Post Void Residual) 08/04/2024 08/04/2024 120mL PVR (Post Void Residual) 01/28/2025 01/28/2025 N/A Encounters Encounter Location Date Provider Diagnosis [facility] [address] [place] [address] 12/22/2024 Kodi Nachtigal Abdominal aortic aneurysm (AAA) without rupture, unspecified part I71.40 [facility] [address] [place] [address] [address] [place] [address] 01/28/2025 Whitney Bills Urge urinary incontinence N39.41 ; Urinary retention R33.9 ; Urinary frequency R35.0 ; Urgency of micturition R39.15 and Nocturia R35.1 [facility] [address] [place] [address] [address] [place] [address] 08/04/2024 Whitney Bills Urge urinary incontinence N39.41 and Urinary retention R33.9 [facility] [address] [place] [address] 12/22/2024 [facility] [address] [place] [address] 12/21/2024 Whitney Bills Assessments Encounter Date Diagnosis (ICD Code) Assessment Notes Treatment Notes Treatment Clinical Notes Section Notes 08/04/2024 Urinary retention (ICD-10 - R33.9) *Patient Education on Urinary RetentionUnderstanding Urinary RetentionDefinition: Urinary retention is the inability to empty the bladder completely or at all. It can be acute (sudden and severe) or chronic (gradual and ongoing).Types:Acute Urinary Retention: A medical emergency where the patient cannot urinate at all, causing severe pain and discomfort.Chronic Urinary Retention: A condition where the bladder does not empty completely, leading to frequent urination and other complications.CausesObst ruction: Blockages in the urinary tract, such as an enlarged prostate, urethral stricture, or bladder stones.Nerve Problems: Conditions like diabetes, multiple sclerosis, or spinal cord injuries that affect nerve signals to the bladder.Medications: Certain drugs, including antihistamines, decongestants, and muscle relaxants, can interfere with bladder function.Infections: Urinary tract infections (UTIs) can cause swelling and obstruction.Postoperativ e: Anesthesia and surgery, particularly pelvic or abdominal procedures, can temporarily affect bladder function.SymptomsAcute Urinary Retention: Sudden inability to urinate, severe lower abdominal pain, and a distended bladder.Chronic Urinary Retention: Frequent urination, difficulty starting urination, weak urine stream, feeling of incomplete bladder emptying, and urinary incontinence.DiagnosisMe dical History and Physical Exam: Assessment of symptoms, medical history, and a physical examination, including a digital rectal exam for men.Bladder Scan: Ultrasound to measure the amount of urine left in the bladder after urination.Urodynamic Tests: Assess bladder function and urine flow.Cystoscopy: A scope inserted into the bladder to look for blockages or abnormalities.Treatment OptionsCatheterization: Inserting a catheter to drain the bladder, providing immediate relief in acute cases.Medications: Alpha-blockers to relax the bladder neck muscles and prostate, or antibiotics if an infection is present.Surgery: Procedures to remove blockages, such as transurethral resection of the prostate (TURP) for an enlarged prostate.Behavioral Therapies: Bladder training and pelvic floor exercises to improve bladder control.Self-Management StrategiesScheduled Voiding: Urinating at regular intervals to prevent bladder overdistension.Double Voiding: Urinating, then waiting a few minutes and trying again to ensure the bladder is empty.Fluid Management: Drinking adequate fluids but avoiding excessive intake, especially before bedtime.Avoid Bladder Irritants: Reducing intake of caffeine, alcohol, and spicy foods.Preventive MeasuresRegular Check-Ups: Monitoring for conditions that can lead to urinary retention, such as prostate enlargement.Pelvic Floor Exercises: Strengthening pelvic muscles to improve bladder control.Medication Review: Discussing with healthcare providers the potential side effects of medications that may affect bladder function.When to Seek Medical AttentionAcute Symptoms: Sudden inability to urinate, severe pain, or a distended bladder requires immediate medical attention.Persistent Symptoms: Difficulty urinating, frequent urination, or a weak urine stream should be evaluated by a healthcare provider. 08/04/2024 Urge urinary incontinence (ICD-10 - N39.41) *Urge incontinenceTreatment OptionsBehavioral Therapies:Bladder Training: Gradually increasing the time between urination to train the bladder to hold urine longer.Scheduled Voiding: Urinating according to a fixed schedule rather than waiting for the urge.Pelvic Floor Exercises (Kegels): Strengthening the pelvic floor muscles to improve bladder control.Medications:Anti cholinergics: Reduce bladder muscle spasms.Beta-3 Agonists: Relax the bladder muscle.Topical Estrogen: For postmenopausal women to improve urinary symptoms.Lifestyle Modifications:Fluid Management: Reducing intake of bladder irritants like caffeine and alcohol.Weight Management: Maintaining a healthy weight to reduce pressure on the bladder.Dietary Changes: Avoiding spicy foods and artificial sweeteners.Medical Devices:Pessary: A device inserted into the vagina to support the bladder.Surgical Options: In severe cases, procedures like bladder augmentation or nerve stimulation may be considered.Self-Manageme nt StrategiesBladder Diary: Keep a record of urination patterns and triggers.Pelvic Floor Exercises: Perform Kegel exercises regularly to strengthen pelvic muscles.Timed Voiding: Follow a schedule to urinate at regular intervals.Avoid Bladder Irritants: Limit intake of caffeine, alcohol, and spicy foods.Stay Hydrated: Drink adequate fluids but avoid excessive intake.When to Seek Medical AttentionPersistent or worsening symptoms.Painful urination or blood in the urine.Signs of a urinary tract infection (fever, chills, back pain). 12/22/2024 Abdominal aortic aneurysm (AAA) without rupture, unspecified part (ICD-10 - I71.40) No change in the size of the aneurysm recheck in 8 months 01/28/2025 Urinary retention (ICD-10 - R33.9) PLAN - PATIENT WAS PLACED ON OXYBUTININ 10 mg 01/28/2025 Urge urinary incontinence (ICD-10 - N39.41) PLAN - PATIENT WAS PLACED ON OXYBUTININ 10 mg 01/28/2025 Urinary frequency (ICD-10 - R35.0) PLAN - PATIENT WAS PLACED ON OXYBUTININ 10 mg 01/28/2025 Urgency of micturition (ICD-10 - R39.15) PLAN - PATIENT WAS PLACED ON OXYBUTININ 10 mg 01/28/2025 Nocturia (ICD-10 - R35.1) PLAN - PATIENT WAS PLACED ON OXYBUTININ 10 mg 01/28/2025 Other PATIENT TO FOLL OW UP IN 6 months WITH UA, PVR Plan Of Treatment Pending Test Test Name Order Date US Doppler Aorta, IVC, Iliac-[id number] 01/14 US Doppler Aorta, IVC, Iliac-94030 01/14 US Doppler Aorta, IVC, Iliac-32861 12/22 US Doppler Aorta, IVC, Iliac-[id number] 12/22 Next Appt Details Provider Name:Whitney Mascorro, 08/04/2025 02:00:00 PM, [address], [place], [address], Provider Name:Ofelia martel, 08/23/2025 10:30:00 AM, [address] [place] [address] [address], [place], [address], Insurance Providers Payer Name Payer Address Payer Phone Subscriber Number Group Number Insured Name Patient Relationship to Insured Coverage Start Date Coverage End Date [employer] [address] [place] [phone] [id number] Donna Lewis Self - patient is the insured [place] Medicare [address] [place] [phone] [id number] Negra Lewisstephania Self - patient is the insured for Life Secondary to Medicare [address] [place] [address] [id number] Negra Lewisstephania Self - patient is the insured Medical (General) History Medical History History ICD Code Melanoma Myocardial Infarct Squamous cell and basal cell carcinoma Diverticulitis Hypertension Hypothyroidism Depression Urinary frequency Surgical History Surgery Date(Month/Year) Heart transplant 2013 Appendectomy Colon resection Tonsillectomy Elbow surgery for bone spur right knee arthroscopy
--- NOTE | 2025-06-22 13:58 | W.ED.NAVMDI ---
HPI - Nausea/Vomiting/Diarrhea General: Chief complaint: Nausea/Vomiting/Diarrhea Stated complaint: d/f for about a week, weakness Time Seen by Provider: 06/22/25 13:58 History of Present Illness: 75-year-old male presents emergency room complaining of diarrhea and loose stools for the last few days. He has not had any fever sweats or chills no hematochezia melena hematemesis crookedness no recent antibiotics. Denies any abdominal pain. He previously had a portion of his colon resected time he had a colostomy and then it was revised. He has also had a heart transplant no recent change in medications. Associated symtoms: Denies chest pain or dysuria Related Data Home Medications ?Medication ?Instructions ?Recorded ?Confirmed alendronate 70 mg tablet mg PO .weekly 05/31/21 03/24/25 aspirin 81 mg tablet,delayed 81 mg PO DAILY 05/31/21 03/24/25 release atorvastatin 40 mg tablet 40 mg PO DAILY 05/31/21 03/24/25 cholecalciferol (vitamin D3) 1,250 PO .every month 05/31/21 03/24/25 mcg (50,000 unit) capsule diltiazem HCl 120 mg 120 mg PO BID 05/31/21 03/24/25 capsule,extended release 12 hr fluticasone furoate 27.5 1 spray intranasal DAILY 05/31/21 03/24/25 mcg/actuation nasal spray,suspension levothyroxine 25 mcg capsule 25 mcg PO DAILY 05/31/21 03/24/25 lisinopril 5 mg tablet 5 mg PO DAILY 05/31/21 03/24/25 magnesium hydroxide 400 mg (170 mg mg PO 05/31/21 03/24/25 magnesium) chewable tablet sertraline 100 mg tablet 100 mg PO DAILY 05/31/21 03/24/25 sulfamethoxazole 800 1 tab PO .COMPLEX 05/31/21 03/24/25 mg-trimethoprim 160 mg tablet tacrolimus 1 mg capsule, 1 mg PO Q12H 05/31/21 03/24/25 immediate-release tamsulosin 0.4 mg capsule 0.4 mg PO DAILY 05/31/21 03/24/25 Previous Rx's ?Medication ?Instructions ?Recorded cephalexin 500 mg capsule 2,000 mg (4 x 500 mg) PO ONCE #4 06/12/21 caps mupirocin 2 % topical ointment 1 applic topical BID #22 grams 08/09/21 acetaminophen 300 mg-codeine 15 mg 1 tab PO Q6H PRN pain #10 tabs 01/31/22 tablet ketoconazole 2 % shampoo 1 applic topical .2x weekly #120 mL 03/05/22 ketoconazole 2 % topical cream 1 applic topical BID #30 grams 03/05/22 ammonium lactate 12 % topical cream 1 applic topical DAILY #385 grams 08/07/22 imiquimod 5 % topical cream packet 1 applic topical .M-F 2 weeks #24 08/07/22 ea imiquimod 5 % topical cream packet 1 applic topical ONCE #24 ea 01/25/23 hydrocodone 5 mg-acetaminophen 325 1 tab PO Q8H PRN pain #5 tabs 08/06/23 mg tablet Allergies Allergy/AdvReac Type Severity Reaction Status Date / Time morphine Allergy rash Verified 06/22/25 13:30 Review of Systems Const: Denies: fever(s) or chills Card: Denies: chest pain Resp: Denies: dyspnea GI: Denies: abdominal pain : Denies: dysuria, urinary frequency or urinary urgency Musc: Denies: neck pain or back pain Skin/Breast: Denies: rash PFSH ED PFSH: Medical History History of nonmelanoma skin cancer History of malignant melanoma Hyperlipemia HTN (hypertension) Prostate atrophy Depression Surgical History History of heart transplant Social History Smoking and tobacco/nicotine status: never used tobacco/nicotine Physical Exam Const: GENERAL APPEARANCE: cooperative ORIENTATION/CONSCIOUSNESS: Yes awake, Yes oriented to person, Yes oriented to place and Yes oriented to time HENMT: COMMON NORMALS: normocephalic, atraumatic and hearing grossly normal bilaterally HEAD & SCALP: normocephalic and atraumatic Resp: COMMON NORMALS: normal respiratory effort, No retractions, No use of accessory muscles and clear to auscultation bilaterally AUSCULTATION: clear to auscultation bilaterally Cardio: COMMON NORMALS: regular rate, regular rhythm and No murmurs present (Cardio) RATE: regular rate RHYTHM: regular rhythm GI: COMMON NORMALS: Soft to palpation and No hepatosplenomegaly present AUSCULTATION: Yes normoactive bowel sounds PALPATION: Yes Soft to palpation, No Tenderness to palpation present (GI), No Guarding due to palpation present (GI) and Yes No hepatosplenomegaly present Extremity: COMMON NORMALS: normal to inspection, capillary refill normal, no clubbing, cyanosis or edema, no calf tenderness and no pedal edema Neuro: SENSORIUM/ORIENTATION: Yes oriented to person, Yes oriented to place and Yes oriented to time Skin: COMMON NORMALS: no rashes or lesions noted GENERAL SKIN EXAM: no rashes or lesions noted Course Vital Signs: Vital signs: Vital Signs Temperature 98.1 F 06/22/25 13:25 Pulse Rate 112 H 06/22/25 22:13 Respiratory Rate 18 06/22/25 18:44 Blood Pressure 136/98 06/22/25 22:13 Pulse Oximetry 96 06/22/25 22:13 Oxygen Delivery Me thod Room Air 06/22/25 18:44 MDM - Nausea/Vomiting/Diarrhea Medical Decision Making Discussed admission to hospital with hospitalist she contacted [facility] where patient on transplant 2013 after discussing with her they asked that the patient be transferred there we have made arrangements for transportation there transplant service will be the receiving. Patient is advised. See hospitalist consultation note. Medical Records I reviewed the patient's medical records. Lab Data I reviewed the patient's lab results. 06/22/25 13:59 06/22/25 19:53 Radiology Impressions Abdomen/Pelvis CT 06/22/25 14:56 IMPRESSION: 1. Stable infrarenal abdominal aortic aneurysm described above. Recommend vascular surgery consultation. 2. Mild hepatomegaly and splenomegaly appear similar to the prior studies. Spleen measures 15 cm [id number] slightly progressed since 2023. 3. Tiny esophageal hernia. 4. Stable bilateral adrenal thickening LEFT greater than RIGHT. 5. No hydronephrosis in either kidney. 6. Previously described small LEFT renal neoplasm not well evaluated on this study but no evidence of marked progression. Previously this measured 1.1 x 1.4 cm in the anterior pole LEFT kidney 7. Sigmoid diverticulosis. 8. Severe central canal stenosis L4-5 due to disc bulging with facet arthropathy and ligamentum flavum hypertrophy. This appears stable since 2022 Gallbladder Ultrasound 06/22/25 16:20 IMPRESSION: Redemonstrated abdominal aortic aneurysm measuring up to 4.4 cm. Otherwise, unremarkable right upper quadrant ultrasound. Laboratory Results WBC 6.93 10^3/uL (3.29-11.43) 06/22/25 13:59 RBC 4.04 10^6/uL (3.85-5.65) 06/22/25 13:59 Hgb 13.20 g/dL (11.27-16.99) 06/22/25 13:59 Hct 36.1 % (37-53) L 06/22/25 13:59 MCV 89.4 fl (82-101) 06/22/25 13:59 MCH 32.7 pg (27-33) 06/22/25 13:59 MCHC 36.6 g/dL (30-55) 06/22/25 13:59 RDW 12.9 % (12.1-15.1) 06/22/25 13:59 Plt Count 39 10^3/cmm (157-399) L 06/22/25 13:59 MPV 13.6 fL (7.4-10.4) H 06/22/25 13:59 Neut % (Auto) 90.3 % 06/22/25 13:59 Lymph % (Auto) 6.1 % 06/22/25 13:59 [place] % (Auto) 2.9 % 06/22/25 13:59 Eos % (Auto) 0.0 % 06/22/25 13:59 Baso % (Auto) 0.0 % 06/22/25 13:59 Neut # (Auto) 6.26 10^3/uL (1.8-7.7) 06/22/25 13:59 Lymph # (Auto) 0.4 10^3/uL (0.8-4.8) L 06/22/25 13:59 [place] # (Auto) 0.2 10^3/uL (0.2-0.9) 06/22/25 13:59 Eos # (Auto) 0.0 10^3/uL (0.0-0.8) 06/22/25 13:59 Baso # (Auto) 0.0 10^3/uL (0.0-0.1) 06/22/25 13:59 Nucleated RBC % (auto) 0 % 06/22/25 13:59 Nucleated RBCs # 0.0 /100WBC 06/22/25 13:59 Sodium 128 mmol/L (136-145) L 06/22/25 19:53 Potassium 2.8 mmol/L (3.5-5.1) L* 06/22/25 19:53 Chloride 91 mmol/L (98-107) L 06/22/25 19:53 Carbon Dioxide 18 mmol/L (22-29) L 06/22/25 19:53 Anion Gap 21.8 (5-19) H 06/22/25 19:53 BUN 75 mg/dL (8-23) H 06/22/25 19:53 Creatinine 2.6 mg/dL (0.7-1.2) H 06/22/25 19:53 GFR Calculation Not Reportable 06/22/25 19:53 Glucose 93 mg/dL (65-115) 06/22/25 19:53 Serum Osmolality 289 mOsm/kg (278-305) 06/22/25 14:15 Calculated Osmolality 288 mOsm/kg (285-295) 06/22/25 19:53 Calcium 7.4 mg/dL (8.5-10.5) L 06/22/25 19:53 Total Bilirubin 0.8 mg/dL (0.15-1.2) 06/22/25 13:59 AST 203 U/L (0-40) H 06/22/25 13:59 ALT 81 U/L (0-41) H 06/22/25 13:59 Alkaline Phosphatase 56 U/L (40-130) 06/22/25 13:59 Total Protein 5.8 g/dL (6.6-8.7) L 06/22/25 13:59 Albumin 3.3 g/dL (3.5-5.2) L 06/22/25 13:59 Globulin 2.5 g/dL (1.3-4.6) 06/22/25 13:59 Lipase 34 U/L (13-60) 06/22/25 13:59 TSH 1.73 uIU/mL (0.27-4.20) 06/22/25 14:15 Urine Color Yellow (Yellow) 06/22/25 16:00 Urine Appearance Cloudy (CLEAR) A 06/22/25 16:00 Urine pH 5.5 (5-7) 06/22/25 16:00 Ur Specific [place] 1.013 (1.005-1.030) 06/22/25 16:00 Urine Protein 1+ (Negative) A 06/22/25 16:00 Urine Glucose (UA) Negative (Normal) 06/22/25 16:00 Urine Ketones Negative (Negative) 06/22/25 16:00 Urine Blood 3+ (Negative) A 06/22/25 16:00 Urine Nitrate Negative (Negative) 06/22/25 16:00 Urine Bilirubin Negative (Negative) 06/22/25 16:00 Urine Urobilinogen 1.0 mg/dL (Negative) 06/22/25 16:00 Ur Leukocyte Esterase Negative (Negative) 06/22/25 16:00 Urine RBC 3-5 /hpf (0-2) 06/22/25 16:00 Urine WBC 0-5 /hpf (0-5) 06/22/25 16:00 Ur Squamous Epith Cells 6-10 /hpf (0-5) 06/22/25 16:00 Amorphous Sediment Not Reportable 06/22/25 16:00 Urine Bacteria None seen /hpf (NONE) 06/22/25 16:00 Hyaline Casts 25.23 /lpf 06/22/25 16:00 Urine Osmolality 318 mOsm/kg (50-1200) 06/22/25 16:00 C. difficile (PCR) Negative (Negative) 06/22/25 16:55 CMV IgG Ab >10.00 U/mL H 06/22/25 13:59 CMV IgM Ab <30.00 AU/mL 06/22/25 13:59 CMV DNA Quant PCR Not detected IU/mL (Not Detected) 06/22/25 14:15 CMV Qnt PCR Interp Not detected Log IU/mL (Not Detected) 06/22/25 14:15 All radiology interpretation(s) finalized by discharge Discharge Plan Discharge Patient Disposition: Xfer Short-Term Hosp Clinical Impression: Heart transplant status, Dehydration, Acute kidney injury, Acute hypokalemia, Acute hyponatremia, Lumbar canal stenosis, Abdominal aortic aneurysm Condition: Stable Referrals: Olimpia Wu MD [Primary Care Provider, Family Practice] Print Language: Qatari Coding Level of Care Code ED [employer] 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
[2025-06-22 14:08] LABS: Hematocrit 36.1 % (37-53); Hemoglobin 13.20 g/dL (11.27-16.99); Mean Corpuscular HGB Conc 36.6 g/dL (30-55); Mean Corpuscular Hemoglobin 32.7 pg (27-33); Mean Corpuscular Volume 89.4 fl (82-101); Nucleated Red Blood Cells % 0 %; Platelet Count 39 10^3/cmm (157-399); Red Blood Count 4.04 10^6/uL (3.85-5.65); White Blood Count 6.93 10^3/uL (3.29-11.43)
[2025-06-22 14:25] LABS: Alanine Aminotransferase 81 U/L (0-41); Albumin Level 3.3 g/dL (3.5-5.2); Alkaline Phosphatase 56 U/L (40-130); Anion Gap 22.1 (5-19); Aspartate Amino Transferase 203 U/L (0-40); Blood Urea Nitrogen 71 mg/dL (8-23); Calcium 7.9 mg/dL (8.5-10.5); Carbon Dioxide 19 mmol/L (22-29); Chloride 86 mmol/L (98-107); Creatinine Clr Calc Pharmacy 21.2556; Globulin 2.5 g/dL (1.3-4.6); Glucose 109 mg/dL (65-115); Lipase 34 U/L (13-60); Osmolality Calculated 279 mOsm/kg (285-295); Potassium 3.1 mmol/L (3.5-5.1); Sodium 124 mmol/L (136-145); Total Protein 5.8 g/dL (6.6-8.7)
[2025-06-22 14:33] LABS: Slide Review Slide Review Perform
--- NOTE | 2025-06-22 14:56 | CT_ITS ---
WS: [id number] CT ABDOMEN PELVIS TECHNIQUE: Noncontrast CT of the abdomen and pelvis with coronal and sagittal reformatted images. CLINICAL INFORMATION: Persistent diarrhea weakness weight loss COMPARISON: CT 2023 DLP: 363.[address] scans at [facility] use at least one of these dose optimization techniques: automated exposure control; mA and/or kV adjustment per patient size (includes targeted exams where dose is matched to clinical indication); or iterative reconstruction. FINDINGS: Noncalcified nodule RIGHT middle lobe measuring 5 mm. Bibasilar atelectasis. Splenic granulomas. Mild hepatomegaly. Small esophageal hiatal hernia. Fatty atrophy of the pancreas. Splenic artery calcification. Gallbladder is contracted but otherwise appears normal. Bilateral adrenal gland thickening LEFT greater than RIGHT appears unchanged. No hydronephrosis in either kidney. Previously described small enhancing suspected renal neoplasm appears grossly unchanged on this noncontrast study but not well evaluated. Previously this measured approximately 1.1 x 1.4 cm. Subcentimeter nonobstructing RIGHT calyceal tip calculus. Numerous pelvic phleboliths. Normal sigmoid colon. No evidence of high-grade small or large bowel obstruction. Benign appearing sclerotic bone island LEFT ilium. Infrarenal abdominal aortic aneurysm similar to previous measuring approximately 4.1 x 4.5 x 4.7 cm AP by transverse by craniocaudal. Tortuous ectatic LEFT iliac artery. Bladder cystocele. Prostate calcification. Prostate enlargement measuring 4.7 cm. Stable severe central canal stenosis L4-5. CT/CT abdomen pelvis wo con [id number] IMPRESSION: 1. Stable infrarenal abdominal aortic aneurysm described above. Recommend vasc ular surgery consultation. 2. Mild hepatomegaly and splenomegaly appear similar to the prior studies. Spl een measures 15 cm [id number] slightly progressed since 2023. 3. Tiny esophageal hernia. 4. Stable bilateral adrenal thickening LEFT greater than RIGHT. 5. No hydronephrosis in either kidney. 6. Previously described small LEFT renal neoplasm not well evaluated on this s tudy but no evidence of marked progression. Previously this measured 1.1 x 1.4 cm in the anterior pole LEFT kidney 7. Sigmoid diverticulosis. 8. Severe central canal stenosis L4-5 due to disc bulging with facet arthropat hy and ligamentum flavum hypertrophy. This appears stable since 2022
[2025-06-22 16:14] LABS: Glucose Urine UA Negative (Normal); Nitrate Urine Negative (Negative); Specific Gravity, Urine 1.013 (1.005-1.030)
[2025-06-22 16:17] LABS: Add Urine Microscopic? YES
--- NOTE | 2025-06-22 16:20 | USR_ITS ---
PROCEDURE INFORMATION: Exam: US Abdomen, Limited; Right Upper Quadrant Exam date and time: 06/22/2025 5:06 PM Age: 75 years old Clinical indication: Abnormal findings; Abnormal lab test; Abnormal function test of other organs/systems; Additional info: Tramnsaminitis TECHNIQUE: Imaging protocol: Real time ultrasound of the abdomen with image documentation. Limited exam focused on the right upper quadrant. COMPARISON: CT abdomen pelvis wo con [id number] 06/22/2025 3:41 PM FINDINGS: Liver: Normal. No masses. Gallbladder: Normal. No gallstones. There is no gallbladder wall thickening. Biliary ducts: Normal. No stones. No dilation. Pancreas: Visualized pancreas is unremarkable. Right kidney: Normal. No mass. No hydronephrosis. Aorta: Abdominal aortic aneurysm measuring 3.5 cm by 4.4 cm, more fully evaluated same-day CT. US/US gall bladder [id number] IMPRESSION: Redemonstrated abdominal aortic aneurysm measuring up to 4.4 cm. Otherwise, unremarkable right upper quadrant ultrasound.
--- NOTE | 2025-06-22 17:19 | P.HP_ITS ---
Providers/Chief Complaint 2 Primary Care Provider: Olimpia Wu MD Chief Complaint: d/f for about a week, weakness History of Present Illness Donna Lewis is a 75 year old male Medications/Allergies Home Medications ?Medication ?Instructions ?Recorded ?Confirmed ?Last Taken ?Type alendronate 70 mg tablet mg PO .weekly 05/31/2103/24 Unknown History aspirin 81 mg tablet,delayed 81 mg PO DAILY 05/31/21 0 03/24/25 Unknown History release atorvastatin 40 mg tablet 40 mg PO DAILY 05/31/2102/25 Unknown History cholecalciferol (vitamin D3) 1,250 PO .every month 06/1403/24/25 Unknown History mcg (50,000 unit) capsule diltiazem HCl 120 mg 120 mg PO BID 05/31/2103/24 Unknown History capsule,extended release 12 hr fluticasone furoate 27.5 1 spray intranasal DAILY 06/1403/24/25 Unknown History mcg/actuation nasal spray,suspension levothyroxine 25 mcg capsule 25 mcg PO DAILY 05/31/21 03/24/25 Unknown History lisinopril 5 mg tablet 5 mg PO DAILY 05/31/2103/24 Unknown History magnesium hydroxide 400 mg (170 mg mg PO 05/31/2102/25 Unknown History magnesium) chewable tablet sertraline 100 mg tablet 100 mg PO DAILY 05/31/21 Unknown History sulfamethoxazole 800 1 tab PO .COMPLEX 05/31/21 0 03/24/25 Unknown History mg-trimethoprim 160 mg tablet tacrolimus 1 mg capsule, 1 mg PO Q12H 05/31/21 Unknown History immediate-release tamsulosin 0.4 mg capsule 0.4 mg PO DAILY 05/31/21 Unknown History cephalexin 500 mg capsule 2,000 mg (4 x 500 mg) PO ONC E #4 06/12/21 03/24/25 Unknown Rx caps mupirocin 2 % topical ointment 1 applic topical BID #2 2 grams 08/09/21 03/24/25 Unknown Rx acetaminophen 300 mg-codeine 15 mg 1 tab PO Q6H PRN pa in #10 tabs 01/31/22 03/24/25 Unknown Rx tablet ketoconazole 2 % shampoo 1 applic topical .2x weekly #120 mL 03/05/22 03/24/25 Unknown Rx ketoconazole 2 % topical cream 1 applic topical BID #3 0 grams 03/05/22 03/24/25 Unknown Rx ammonium lactate 12 % topical cream 1 applic topical D AILY #385 grams 08/07/22 03/24/25 Unknown Rx imiquimod 5 % topical cream packet 1 applic topical .M -F 2 weeks #24 08/07/22 03/24/25 Unknown Rx ea imiquimod 5 % topical cream packet 1 applic topical ON CE #24 ea 01/25/23 03/24/25 Unknown Rx hydrocodone 5 mg-acetaminophen 325 1 tab PO Q8H PRN pa in #5 tabs 08/06/23 03/24/25 Unknown Rx mg tablet Allergies Allergy/AdvReac Type Severity Reaction Status Date / Time morphine Allergy rash Verified 06/22/25 13:30 PFSH Acute 2 PFSH: Medical History History of nonmelanoma skin cancer History of malignant melanoma Hyperlipemia HTN (hypertension) Prostate atrophy Depression Surgical History History of heart transplant Social History Smoking and tobacco/nicotine status: never used tobacco/nicotine Vitals/I&O/Wt Last Vital Signs Temp 98.1 F 06/22/25 13:25 Pulse 112 H 06/22/25 15:57 Resp 16 06/22/25 15:57 BP 122/86 06/22/25 15:57 Pulse Ox 97 06/22/25 15:57 O2 Del Method Room Air 06/22/25 14:41 06/22/25 06/22/25 06/22/25 06:59 14:59 22:59 Intake Total 500 / 500 Balance 500 / 500 Weight last 48 hrs Weight 63.957 kg Data 06/22/25 13:59 06/22/25 13:59 A&P PDMP PDMP Reviewed: Not Reviewed Coding Level of Care Code Acute Code for Chg Jenny
--- NOTE | 2025-06-22 17:19 | PM.HP ---
Providers/Chief Complaint Primary Care Provider: Olimpia Wu MD Chief Complaint: d/f for about a week, weakness History of Present Illness Donna Lewis is a 75 year old male Medications/Allergies Home Medications ?Medication ?Instructions ?Recorded ?Confirmed ?Last Taken ?Type alendronate 70 mg tablet mg PO .weekly 05/31/21 03/24/25 Unknown History aspirin 81 mg tablet,delayed 81 mg PO DAILY 05/31/21 03/24/25 Unknown History release atorvastatin 40 mg tablet 40 mg PO DAILY 05/31/21 03/24/25 Unknown History cholecalciferol (vitamin D3) 1,250 PO .every month 05/31/21 03/24/25 Unknown History mcg (50,000 unit) capsule diltiazem HCl 120 mg 120 mg PO BID 05/31/21 03/24/25 Unknown History capsule,extended release 12 hr fluticasone furoate 27.5 1 spray intranasal DAILY 05/31/21 03/24/25 Unknown History mcg/actuation nasal spray,suspension levothyroxine 25 mcg capsule 25 mcg PO DAILY 05/31/21 03/24/25 Unknown History lisinopril 5 mg tablet 5 mg PO DAILY 05/31/21 03/24/25 Unknown History magnesium hydroxide 400 mg (170 mg mg PO 05/31/21 03/24/25 Unknown History magnesium) chewable tablet sertraline 100 mg tablet 100 mg PO DAILY 05/31/21 03/24/25 Unknown History sulfamethoxazole 800 1 tab PO .COMPLEX 05/31/21 03/24/25 Unknown History mg-trimethoprim 160 mg tablet tacrolimus 1 mg capsule, 1 mg PO Q12H 05/31/21 03/24/25 Unknown History immediate-release tamsulosin 0.4 mg capsule 0.4 mg PO DAILY 05/31/21 03/24/25 Unknown History cephalexin 500 mg capsule 2,000 mg (4 x 500 mg) PO ONCE #4 06/12/21 03/24/25 Unknown Rx caps mupirocin 2 % topical ointment 1 applic topical BID #22 grams 08/09/21 03/24/25 Unknown Rx acetaminophen 300 mg-codeine 15 mg 1 tab PO Q6H PRN pain #10 tabs 01/31/22 03/24/25 Unknown Rx tablet ketoconazole 2 % shampoo 1 applic topical .2x weekly #120 mL 03/05/22 03/24/25 Unknown Rx ketoconazole 2 % topical cream 1 applic topical BID #30 grams 03/05/22 03/24/25 Unknown Rx ammonium lactate 12 % topical cream 1 applic topical DAILY #385 grams 08/07/22 03/24/25 Unknown Rx imiquimod 5 % topical cream packet 1 applic topical .M-F 2 weeks #24 08/07/22 03/24/25 Unknown Rx ea imiquimod 5 % topical cream packet 1 applic topical ONCE #24 ea 01/25/23 03/24/25 Unknown Rx hydrocodone 5 mg-acetaminophen 325 1 tab PO Q8H PRN pain #5 tabs 08/06/23 03/24/25 Unknown Rx mg tablet Allergies Allergy/AdvReac Type Severity Reaction Status Date / Time morphine Allergy rash Verified 06/22/25 13:30 PFSH Acute PFSH: Medical History History of nonmelanoma skin cancer History of malignant melanoma Hyperlipemia HTN (hypertension) Prostate atrophy Depression Surgical History History of heart transplant Social History Smoking and tobacco/nicotine status: never used tobacco/nicotine Vitals/I&O/Wt Last Vital Signs Temp 98.1 F 06/22/25 13:25 Pulse 112 H 06/22/25 15:57 Resp 16 06/22/25 15:57 BP 122/86 06/22/25 15:57 Pulse Ox 97 06/22/25 15:57 O2 Del Method Room Air 06/22/25 14:41 06/22/25 06/22/25 06/22/25 06:59 14:59 22:59 Intake Total 500 / 500 Balance 500 / 500 Weight last 48 hrs Weight 63.957 kg Data 06/22/25 13:59 06/22/25 13:59 A&P PDMP PDMP Reviewed: Not Reviewed Coding Level of Care Code Acute Code for Chg Fwd
[2025-06-22 17:30] LABS: UA Slide Review UA Slide Review Perf
--- NOTE | 2025-06-22 17:38 | ECG_ITS ---
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 Measurements Intervals [place] Rate: 103 P: 76 ME: 161 QRS: 67 QRSD: 90 T: 64 QT: 323 QTc: 423 Interpretive Statements SINUS TACHYCARDIA WITH OCCASIONAL SUPRAVENTRICULAR PREMATURE COMPLEXES NONSPECIFIC ST & T-WAVE ABNORMALITY Compared to ECG 08/06/2023 17:28:31 T-wave abnormality now present Sinus rhythm no longer present Prolonged QT interval no longer present Electronically Signed On 06-24-2025 10:25:47 CDT by Cyrus Alfonso M.D. [email or web address]
[2025-06-22 18:14] LABS: C.Diff PCR (Lab) NEGATIVE (Negative)
--- NOTE | 2025-06-22 18:16 | P.CONIM_ITS ---
Providers/Reason For Consult 2 Consulting Physician/Specialty*: Internal medicine?Tamiko Reason for Consult*: Diarrhea Primary Care Provider: Olimpia Wu MD History of Present Illness History of Present Illness Donna Lewis is a 75 year old male with past medical history of heart transplant done in April 2013, hypertension, hyperlipidemia,, depression presented to the hospital today for complaint of generalized weakness and diarrhea. History is provided by patient and combined. Patient is very hard of hearing and a very poor historian. He states that he has been having diarrhea for the last 1 week and the last few days it has worsened to the point that he is going 6-7 times in a day. Patient does take Bactrim 3 times a week along with tacrolimus. Patient's states that he has been on both of these medications since 2012. Patient's last creatinine was 0.8 in February 2025. Today in the ER he is noted to be hyponatremic with sodium of 124, potassium 3.1, chloride 86, anion gap 22.1, creatinine 2.8. Liver enzymes are elevated as well with AST 203, ALT 81. He has 3+ blood in urine 1+ protein 3-5 RBCs. No bacteria seen. C. difficile negative. 1. Stable infrarenal abdominal aortic aneurysm described above. Recommend vascular surgery consultation. 2. Mild hepatomegaly and splenomegaly appear similar to the prior studies. Spleen measures 15 cm [id number] slightly progressed since 2023. 3. Tiny esophageal hernia. 4. Stable bilateral adrenal thickening LEFT greater than RIGHT. 5. No hydronephrosis in either kidney. 6. Previously described small LEFT renal neoplasm not well evaluated on this study but no evidence of marked progression. Previously this measured 1.1 x 1.4 cm in the anterior pole LEFT kidney 7. Sigmoid diverticulosis. 8. Severe central canal stenosis L4-5 due to disc bulging with facet arthropathy and ligamentum flavum hypertrophy. This appears stable since 2022 Patient denies chest pain shortness of breath, nausea, vomiting or any other symptoms at this time. Is having generalized weakness. Patient's states that generally he is independent however lately has been holding onto furniture while walking. Does not use a walker or cane. [facility] [place] was contacted on the phone to request patient's records. Patient sees Dr. Noble there. Nurse practitioner from transplant team called back and discussed case with me. I discussed regarding Bactrim and tacrolimus medication continuation and inform them that patient had an MANFRED. She said patient might have to go on dapsone and will discuss with her collaborating physician and call me back. I did inform them that we do not have infectious disease or gastroenterology available here and patient is transplant status. Patient is on tacrolimus/immunosuppressant and may require higher level of care. She later called me back and requested we transfer the patient up to [facility] at this time and the accepting physician will be Sagrario Richardson. I offered to speak to Dr. Richardson in case she has any questions. I was given the number for access center to make transport arrangements. Phone number [phone]. [facility] ER coordinator will coordinate transport once a bed becomes available. I went bedside again and discussed with both the patient and patient's who were agreeable to transfer at this time. Medications/Allergies Home Medications ?Medication ?Instructions ?Recorded ?Confirmed ?Last Taken ?Type alendronate 70 mg tablet mg PO .weekly 05/31/2103/24 Unknown History aspirin 81 mg tablet,delayed 81 mg PO DAILY 05/31/21 0 03/24/25 Unknown History release atorvastatin 40 mg tablet 40 mg PO DAILY 05/31/2102/25 Unknown History cholecalciferol (vitamin D3) 1,250 PO .every month 06/1403/24/25 Unknown History mcg (50,000 unit) capsule diltiazem HCl 120 mg 120 mg PO BID 05/31/2103/24 Unknown History capsule,extended release 12 hr fluticasone furoate 27.5 1 spray intranasal DAILY 06/1403/24/25 Unknown History mcg/actuation nasal spray,suspension levothyroxine 25 mcg capsule 25 mcg PO DAILY 05/31/21 03/24/25 Unknown History lisinopril 5 mg tablet 5 mg PO DAILY 05/31/2103/24 Unknown History magnesium hydroxide 400 mg (170 mg mg PO 05/31/2102/25 Unknown History magnesium) chewable tablet sertraline 100 mg tablet 100 mg PO DAILY 05/31/21 Unknown History sulfamethoxazole 800 1 tab PO .COMPLEX 05/31/21 0 03/24/25 Unknown History mg-trimethoprim 160 mg tablet tacrolimus 1 mg capsule, 1 mg PO Q12H 05/31/21 Unknown History immediate-release tamsulosin 0.4 mg capsule 0.4 mg PO DAILY 05/31/21 Unknown History cephalexin 500 mg capsule 2,000 mg (4 x 500 mg) PO ONC E #4 06/12/21 03/24/25 Unknown Rx caps mupirocin 2 % topical ointment 1 applic topical BID #2 2 grams 08/09/21 03/24/25 Unknown Rx acetaminophen 300 mg-codeine 15 mg 1 tab PO Q6H PRN pa in #10 tabs 01/31/22 03/24/25 Unknown Rx tablet ketoconazole 2 % shampoo 1 applic topical .2x weekly #120 mL 03/05/22 03/24/25 Unknown Rx ketoconazole 2 % topical cream 1 applic topical BID #3 0 grams 03/05/22 03/24/25 Unknown Rx ammonium lactate 12 % topical cream 1 applic topical D AILY #385 grams 08/07/22 03/24/25 Unknown Rx imiquimod 5 % topical cream packet 1 applic topical .M -F 2 weeks #24 08/07/22 03/24/25 Unknown Rx ea imiquimod 5 % topical cream packet 1 applic topical ON CE #24 ea 01/25/23 03/24/25 Unknown Rx hydrocodone 5 mg-acetaminophen 325 1 tab PO Q8H PRN pa in #5 tabs 08/06/23 03/24/25 Unknown Rx mg tablet Allergies Allergy/AdvReac Type Severity Reaction Status Date / Time morphine Allergy rash Verified 06/22/25 13:30 PFSH Acute 2 PFSH: Medical History (Updated 06/22/25 @ 18:28 by Veronica Morrison MD) History of nonmelanoma skin cancer History of malignant melanoma Hyperlipemia HTN (hypertension) Prostate atrophy Depression Surgical History (Updated 06/22/25 @ 18:28 by Veronica Morrison MD) History of heart transplant Social History Smoking and tobacco/nicotine status: never used tobacco/nicotine Vitals/I&O/Wt Last Vital Signs Temp 98.1 F 06/22/25 13:25 Pulse 100 06/22/25 17:19 Resp 16 06/22/25 17:19 BP 138/92 07/29/25 17:19 Pulse Ox 95 06/22/25 17:19 O2 Del Method Room Air 06/22/25 17:19 06/22/25 06/22/25 06/22/25 06:59 14:59 22:59 Intake Total 500 / 500 Balance 500 / 500 Weight last 48 hrs Weight 63.957 kg Physical Exam 2 Narrative: General: Alert oriented x3, patient seen very hard of hearing. assisted in speaking to him as he understood her better. HEENT: Normocephalic, atraumatic, EOMI, comfortably on room air Cardio sinus tachycardia normal S1-S2, Respiratory: Clear to auscultation bilaterally no wheezes no rhonchi. Auscultation was performed while patient was sitting up. GI: Abdomen soft, generally nontender with very mild tenderness around umbilical region. No rebound tenderness noted. Nontender right upper quadrant nondistended, bowel sounds + Extremities: No edema bilateral lower extremities Data 06/22/25 13:59 06/22/25 13:59 A&P Assessment and plan 1. Diarrhea: 2. Heart transplant status: 3. Dehydration: 4. Generalized weakness: 5. Immunosuppression: Plan: #Diarrhea x 1 week #Heart transplant 2012 #Hyperlipidemia #Hypertension #Depression #On immunosuppressants #Infrarenal abdominal aortic aneurysm ? I will hold Bactrim and lisinopril at this time to avoid nephrotoxic agents. ? Continue on IV fluids. Patient is status post 500 cc normal saline bolus. ? Continue normal saline at 75 cc/h. ? Patient hyponatremic with sodium 124. Suspect this is secondary to dehydration. Check serum, urine osmolality, urine sodium ? Consult nephrology ? Continue tacrolimus at this time ? Check CMV IgG panel IgM, PCR ? Check Cryptosporidium ? Check stool culture, ova parasite screen ? Continue aspirin atorvastatin, levothyroxine. ? Check TSH ? Hold tamsulosin ? Will check orthostatic vitals. ? Patient is currently afebrile and has a normal white count however is on immunosuppressants ? Will place patient on ciprofloxacin and Flagyl ? Hold Bactrim at this time. Transplant team considering use of dapsone however we currently do not have this on formulary. ? Further management and instructions per transplant team. ? Patient expected to be transported tonight. - Patient will benefit from ID consultation and transplant service consultation for further workup and management. ? Abdominal aortic aneurysm 4 x 4.5 x 4.7 cm. Continue to follow with vascular surgery. Patient would like limited resuscitation. He is okay with CPR but does not want to be on a ventilator or intubated at all. in agreement. DVT prophylaxis: Heparin SQ twice daily. PDMP PDMP Reviewed: Not Reviewed Consult Attestations 2 Medical Necessity Statement: Transferred to [facility]. Diagnoses Diarrhea R19.7 Heart transplant status Z94.1 Dehydration E86.0 Generalized weakness R53.1 Immunosuppression D84.9
[2025-06-22 18:20] LABS: Thyroid Stimulating Hormone 1.73 uIU/mL (0.27-4.20)
--- NOTE | 2025-06-22 19:34 | PC.NURSE ---
Pt's administered night time home medications. Pharmacy wanted double verification with physician to hold pt's medication previously ordered. Physician notified and verbal order to hold medication was given.
[2025-06-22] MEDS: metroNIDAZOLE IV 500 MG/100 ML PREMIX 100 MG IV (19:49)
[2025-06-22 20:25] LABS: Anion Gap 21.8 (5-19); Blood Urea Nitrogen 75 mg/dL (8-23); Calcium 7.4 mg/dL (8.5-10.5); Carbon Dioxide 18 mmol/L (22-29); Chloride 91 mmol/L (98-107); Creatinine Clr Calc Pharmacy 22.8906; Glucose 93 mg/dL (65-115); Osmolality Calculated 288 mOsm/kg (285-295); Sodium 128 mmol/L (136-145)
[2025-06-22 20:27] LABS: Potassium 2.8 mmol/L (3.5-5.1)
--- NOTE | 2025-06-22 22:16 | PC.NURSE ---
this nurse contacted [facility] to inform pt had left facility and about K+ being 2.8.
[2025-06-26 12:54] LABS: CMV DNA By PCR Not Detected (Not Detected)
== END 2025-06-22 21:00 | disposition short-term general hospital (02) ==
PROVIDERS: Emergency Medicine; Internal Medicine; Emergency Provider Family Medicine; PCP Family Medicine
DX: Z94.1 Heart transplant status (principal); E86.0 Dehydration; N17.9 Acute kidney failure, unspecified; E87.6 Hypokalemia; E87.1 Hypo-osmolality and hyponatremia; M48.061 Spinal stenosis, lumbar region without neurogenic claudication; I71.40 Abdominal aortic aneurysm, without rupture, unspecified; Z85.828 Personal history of other malignant neoplasm of skin; Z85.820 Personal history of malignant melanoma of skin; E78.5 Hyperlipidemia, unspecified; I10 Essential (primary) hypertension
CPT/HCPCS: 36415; 74176; 76705; 80048; 80053; 81001; 83690; 83930; 83935; 84443; 85025; 87493; 87496; 93005; 96374; 96375; 99285; J0744; J3490; J7030; J7040; J9999

== ENCOUNTER → 2025-08-04 08:09 | Outpatient (BNVA) | payer OTHER, SELFPAY | PROVIDERS: PCP Family Medicine; Visit Provider Dermatology | DX: D04.39 Carcinoma in situ of skin of other parts of face (principal); C44.329 Squamous cell carcinoma of skin of other parts of face | CPT/HCPCS: 12053; 17311; 99213 ==

== ENCOUNTER → 2025-08-17 10:58 | Outpatient (BNVA) | payer OTHER, SELFPAY | PROVIDERS: PCP Family Medicine; Visit Provider Dermatology | DX: D04.39 Carcinoma in situ of skin of other parts of face (principal) | CPT/HCPCS: 17282 ==

== ENCOUNTER → 2025-10-19 13:08 | Outpatient (BNVA) | payer OTHER, SELFPAY | PROVIDERS: PCP Family Medicine; Visit Provider Nurse Practitioner Family | DX: Z85.828 Personal history of other malignant neoplasm of skin (principal); Z08 Encounter for follow-up examination after completed treatment for malignant neoplasm; Z85.820 Personal history of malignant melanoma of skin; L82.0 Inflamed seborrheic keratosis; Z78.9 Other specified health status; L57.0 Actinic keratosis | CPT/HCPCS: 17000; 17110; 99213 ==